=== PATIENT | female | born 1990 | race African-American/Black ===

== ENCOUNTER → 2016-11-21 | Outpatient (CLI) | payer OTHER ==
[2016-09-02 19:43] VITALS: BP 142/76
[~2016-11-21] MED LIST: ACET-704 PO; AMOX500C PO; AMOX875T PO; BENZ100C PO; HYDR-2762 PO; HYDR-971 PO; IBUP800T2 PO; LIPOZENE PO; NAPR375T3 PO; PRED20TA PO
--- NOTE | 2016-11-21 10:04 | RAD ---
Abdominal ultrasound, 11/21/2016: History: Abdominal pain, possible umbilical hernia The gallbladder is within normal limits in size. There is no sonographic evidence of cholelithiasis. The gallbladder wall is not thickened. No bile duct dilatation is seen. The visualized portions of the liver, pancreas, spleen and both kidneys are unremarkable. The aorta and inferior vena cava are unremarkable. No free fluid is evident in the abdomen. Limited scans of the anterior abdominal wall reveal no abnormality. IMPRESSION: No significant abnormality is detected.
== END | disposition home or self-care (01) ==
LOC: US 06:40
PROVIDERS: ATTEND Specialist
DX: R10.9 Unspecified abdominal pain (principal)
CPT/HCPCS: 76700

== ENCOUNTER → 2016-12-08 | Outpatient (CLI) | payer OTHER ==
[2016-09-02 19:43] VITALS: BP 142/76
[~2016-12-08] MED LIST changes: +IOHEXOL 240 MG/ML 50ML VIAL. PO ONE; +IOHEXOL 300 MG/ML 75 ML VIAL IV ONE
--- NOTE | 2016-12-08 10:56 | RAD ---
Indication ventral hernia. Axial images of the abdomen and pelvis were obtained. Both IV and oral contrast were administered. Note is made of a previous examination 03/22/2016. There is some volume loss in the right middle lobe. This may reflect atelectasis. Pneumonia is not entirely excluded. The left lung base is clear. The liver and spleen appear unremarkable. The gallbladder appears grossly normal. No pancreatic abnormality is seen. The adrenal glands and kidneys appear normal. There is diastases of the rectus muscle. The linea alba appears intact and no elan abdominal hernia is seen. There is some soft tissue irregularity in the area of the umbilicus. Inflammation or a wound in this area is not excluded. Correlation with targeted physical exam advised. An acute finding in the abdomen is not seen. In the pelvis the uterus is slightly enlarged. Clinical correlation again advised. A focal mass or inflammatory process is not seen. IMPRESSION: Diastases of the rectus muscle. The linea alba appears intact and no elan hernia is seen. Possible inflammation in the area of the umbilicus. Volume loss, compatible with atelectasis or focus of pneumonia, in the right middle lobe PQRS Compliance Statement: One or more of the following individualized dose reduction techniques were utilized for this examination: 1. Automated exposure control 2. Adjustment of the mA and/or kV according to patient size 3. Use of iterative reconstruction technique
== END | disposition home or self-care (01) ==
LOC: CT 08:56
PROVIDERS: ATTEND Specialist
DX: K43.9 Ventral hernia without obstruction or gangrene (principal); J18.9 Pneumonia, unspecified organism
CPT/HCPCS: 74177; Q9966; Q9967

== ENCOUNTER 2016-12-15 07:30 | Day surgery (SDC) | payer OTHER ==
[~2016-12-15] VITALS: Ht 165.1 cm; Wt 71.7 kg
[~2016-12-15 07:30] MED LIST changes: +CEFAZOLIN 1GM IVPB FOR OMNI 50 ML IV ONE; +FENTANYL PF 100 MCG/2 ML VIAL. IV PRN; +HYDROMORPHONE 2 MG/ML VIAL. IV PRN; -IOHEXOL 240 MG/ML 50ML VIAL. PO ONE; -IOHEXOL 300 MG/ML 75 ML VIAL IV ONE; +IV RINGERS,LACTATED 1000ML 1,000 ML IV SCH; +LIDOCAINE 1% 1 ML SYRINGE. ID PRN; +MORPHINE SULFATE 2 MG/ML DISP.SYRIN. IV PRN; +ONDANSETRON PF 4 MG/2 ML VIAL. IV PRN; +PROCHLORPERAZINE 10 MG/2 ML VIAL. IV PRN
[2016-12-15] MEDS ORDERED: LIDOCAINE 2% 100 MG/5 ML DISP.SYRIN. ONE (08:09)
[2016-12-15] MEDS ORDERED: DEXAMETHASONE SOD PHOS 20 MG/5 ML VIAL. ONE (08:09)
[2016-12-15] MEDS ORDERED: PROPOFOL 20 ML IV ONE (08:09)
[2016-12-15] MEDS ORDERED: ROCURONIUM 50 MG/5 ML VIAL. ONE (08:09)
[2016-12-15] MEDS ORDERED: ONDANSETRON PF 4 MG/2 ML VIAL. ONE (08:09)
[2016-12-15] MEDS ORDERED: FENTANYL PF 100 MCG/2 ML VIAL. ONE (08:11)
[2016-12-15 08:21] LABS: NEG OBC UR NEG; POS OBC UR POS
[2016-12-15 08:25] LABS: BASO % 1 % (0-3); EOS % 1 % (0-3); HEMATOCRIT 33.6 % (36.0-47.0); HEMOGLOBIN 10.8 g/dL (12.0-15.5); LYMPH # 2.3 x10^3/uL (1.0-4.8); LYMPH % 52 % (24-48); MEAN CORPUSCULAR HEMOGLOBIN 31 pg (25-35); MEAN CORPUSCULAR HGB CONC 32 g/dL (31-37); MEAN CORPUSCULAR VOLUME 98 fL (79-100); MONO % 8 % (0-9); NEUT % 39 % (31-73); PLATELET COUNT 265 x10^3/uL (140-400); RED BLOOD COUNT 3.45 x10^6/uL (3.50-5.40); RED CELL DISTRIBUTION WIDTH 12.5 % (11.5-14.5); WHITE BLOOD COUNT 4.5 x10^3/uL (4.0-11.0)
[2016-12-15 08:36] LABS: INR 1.1 (0.8-1.1); PROTHROMBIN TIME PATIENT 13.2 SEC (11.7-14.0)
[2016-12-15 08:42] LABS: CALCIUM 9.1 mg/dL (8.5-10.1); CREATININE 0.5 mg/dL (0.6-1.0); GFR 179.1; POTASSIUM 3.7 mmol/L (3.5-5.1)
[2016-12-15 08:48] LABS: ALBUMIN 3.4 g/dL (3.4-5.0); ALBUMIN/GLOBULIN RATIO 0.9 (1.0-1.7); TOTAL PROTEIN 7.2 g/dL (6.4-8.2)
[2016-12-15] MEDS ORDERED: MIDAZOLAM HCL 2 MG/2 ML VIAL. ONE (09:00)
--- NOTE | 2016-12-15 09:02 | PDOC ---
SURGICAL PROGRESS NOTE Subjective Surgeon.......................................Feliciano Pre-op diagnosis...........................Ventral hernia Post-op diagnosis.........................Ventral hernia Anesthesia....................................General Procedure.....................................ventral hernia repair drains........................................... fluids............................................see anesthesia blood loss..................................... condition.......................................satisfactory Vital Signs Vital Signs Date Time Temp Pulse Resp B/P Pulse Ox O2 Delivery O2 Flow Rate FiO2 12/15/16 08:15 98.0 68 20 115/61 100 Room Air 98.0 Labs Laboratory Tests Test 12/15/16 08:00 12/15/16 08:15 Urine Test Negative (NEG) White Blood Count 4.5x10^3/uL (4.0-11.0) Red Blood Count 3.45x10^6/uL (3.50-5.40) Hemoglobin 10.8g/dL (12.0-15.5) Hematocrit 33.6% (36.0-47.0) Mean Corpuscular Volume 98fL (79-100) Mean Corpuscular Hemoglobin 31pg (25-35) Mean Corpuscular Hemoglobin Concent 32g/dL (31-37) Red Cell Distribution Width 12.5% (11.5-14.5) Platelet Count 265x10^3/uL (140-400) Neutrophils (%) (Auto) 39% (31-73) Lymphocytes (%) (Auto) 52% (24-48) Monocytes (%) (Auto) 8% (0-9) Eosinophils (%) (Auto) 1% (0-3) Basophils (%) (Auto) 1% (0-3) Neutrophils # (Auto) 1.7x10^3uL (1.8-7.7) Lymphocytes # (Auto) 2.3x10^3/uL (1.0-4.8) Monocytes # (Auto) 0.3x10^3/uL (0.0-1.1) Eosinophils # (Auto) 0.1x10^3/uL (0.0-0.7) Basophils # (Auto) 0.0x10^3/uL (0.0-0.2) Prothrombin Time 13.2SEC (11.7-14.0) Prothromb Time International Ratio 1.1 (0.8-1.1) Sodium Level 140mmol/L (136-145) Potassium Level 3.7mmol/L (3.5-5.1) Chloride Level 104mmol/L (98-107) Carbon Dioxide Level 29mmol/L (21-32) Anion Gap 7 (6-14) Blood Urea Nitrogen 10mg/dL (7-20) Creatinine 0.5mg/dL (0.6-1.0) Estimated GFR (Cockcroft-Gault) 179.1 BUN/Creatinine Ratio 20 (6-20) Glucose Level 95mg/dL (70-99) Calcium Level 9.1mg/dL (8.5-10.1) Total Bilirubin 1.0mg/dL (0.2-1.0) Aspartate Amino Transf (AST/SGOT) 14U/L (15-37) Alanine Aminotransferase (ALT/SGPT) 16U/L (14-59) Alkaline Phosphatase 71U/L (46-116) Total Protein 7.2g/dL (6.4-8.2) Albumin 3.4g/dL (3.4-5.0) Albumin/Globulin Ratio 0.9 (1.0-1.7) Laboratory Tests Test 12/15/16 08:00 12/15/16 08:15 Urine Test Negative (NEG) White Blood Count 4.5x10^3/uL (4.0-11.0) Red Blood Count 3.45x10^6/uL (3.50-5.40) Hemoglobin 10.8g/dL (12.0-15.5) Hematocrit 33.6% (36.0-47.0) Mean Corpuscular Volume 98fL (79-100) Mean Corpuscular Hemoglobin 31pg (25-35) Mean Corpuscular Hemoglobin Concent 32g/dL (31-37) Red Cell Distribution Width 12.5% (11.5-14.5) Platelet Count 265x10^3/uL (140-400) Neutrophils (%) (Auto) 39% (31-73) Lymphocytes (%) (Auto) 52% (24-48) Monocytes (%) (Auto) 8% (0-9) Eosinophils (%) (Auto) 1% (0-3) Basophils (%) (Auto) 1% (0-3) Neutrophils # (Auto) 1.7x10^3uL (1.8-7.7) Lymphocytes # (Auto) 2.3x10^3/uL (1.0-4.8) Monocytes # (Auto) 0.3x10^3/uL (0.0-1.1) Eosinophils # (Auto) 0.1x10^3/uL (0.0-0.7) Basophils # (Auto) 0.0x10^3/uL (0.0-0.2) Prothrombin Time 13.2SEC (11.7-14.0) Prothromb Time International Ratio 1.1 (0.8-1.1) Sodium Level 140mmol/L (136-145) Potassium Level 3.7mmol/L (3.5-5.1) Chloride Level 104mmol/L (98-107) Carbon Dioxide Level 29mmol/L (21-32) Anion Gap 7 (6-14) Blood Urea Nitrogen 10mg/dL (7-20) Creatinine 0.5mg/dL (0.6-1.0) Estimated GFR (Cockcroft-Gault) 179.1 BUN/Creatinine Ratio 20 (6-20) Glucose Level 95mg/dL (70-99) Calcium Level 9.1mg/dL (8.5-10.1) Total Bilirubin 1.0mg/dL (0.2-1.0) Aspartate Amino Transf (AST/SGOT) 14U/L (15-37) Alanine Aminotransferase (ALT/SGPT) 16U/L (14-59) Alkaline Phosphatase 71U/L (46-116) Total Protein 7.2g/dL (6.4-8.2) Albumin 3.4g/dL (3.4-5.0) Albumin/Globulin Ratio 0.9 (1.0-1.7) ASAD FELICIANO MD Dec 15, 2016 09:01
[2016-12-15] MEDS ORDERED: BUPIVAC MPF-EPI 0.5%-1:200000 30 ML VIAL. ONE (09:07)
[2016-12-15] MEDS ORDERED: KETOROLAC 30 MG/ML SYRINGE FOR OR. INJ ONE (10:26)
[2016-12-15] MEDS ORDERED: GLYCOPYRROLATE 1 MG/5 ML VIAL. ONE (10:27)
[2016-12-15] MEDS ORDERED: NEOSTIGMINE METHYLSULFATE 5 MG/5 ML SYRINGE. ONE (10:27)
[2016-12-15] MEDS ORDERED: SEVOFLURANE 61 TO 120 MINUTES. IH ONE (10:51)
[2016-12-15] MEDS ORDERED: CEFAZOLIN 1GM IVPB FOR OMNI 50 ML IV ONE (11:19)
[2016-12-15] MEDS ORDERED: HYDR-2679 PO (11:53)
[2016-12-15] MEDS: FENTANYL PF 100 MCG/2 ML VIAL. IV PRN ×4 (12:15→13:15)
[2016-12-15] MEDS ORDERED: HYDROCODONE/APAP 7.5/325MG TABLET. PO ONE (13:00)
[2016-12-15 14:03] VITALS: BP 115/61
--- NOTE | 2016-12-16 02:43 | OP ---
DATE OF SURGERY: SURGEON: Otoniel Feliciano MD PREOPERATIVE DIAGNOSIS: Recurrent ventral hernia. POSTOPERATIVE DIAGNOSIS: Recurrent ventral hernia. ANESTHESIA: General. PROCEDURE: Repair of recurrent ventral hernia with mesh. TECHNIQUE: Under general anesthesia, the patient was properly prepped and draped in a routine fashion. The patient had had an upper abdominal incisional hernia repair. She got after that and now has this hernia. The hernia now is just above the umbilicus protruding and causing some difficulties. As such, after the area had been properly prepped and draped, the technique was begun. A supraumbilical incision was made, carried down through the skin, a little larger than normal, because this was recurrent hernia, you could the defect. As such, we made the incision and carried it down through the skin with a 15 blade. This was all done after she was properly prepped and draped. We then identified the sac and slowly went around it with Metzenbaum scissors, some finger dissection and slowly went around it. We took it off the anterior abdominal wall scar and the umbilicus with a knife and Metzenbaum. We then opened the sac to make certain that there were no contents in it. We did this safely making sure not to injure any intraabdominal contents. We then identified the fascial edges. Luckily, there were no adhesions to the fascial edges. We pulled these up with Chuy clamps and then cut away the redundant sac and used 0 Prolene interrupted sutures to close the wound. The wound, however, was closed only after we put a circular patch of the Ventralex with the Seprafilm on the underside of it, put this in, we had sutured it to the anterior abdominal wall using 0 Prolene sutures and then had it laid flat against the anterior abdominal wall and then closed the defect using interrupted #1 Prolene sutures. These were pulled up and 0.5% Marcaine with epinephrine was injected into the fascia. We then cut the sutures. The tag that had been on the disk had been cut previous to the closure of the defect. We then used 4-0 Vicryl interrupted sutures to bury the knots, so that they would not protrude and they would be laid flat. . We then irrigated the wound with saline and approximated some of the subcutaneous with 4-0 Vicryl and then closed the skin using a subcuticular 5-0 Vicryl. This having been done, we then applied a sterile dressing and the procedure was terminated. The blood loss was probably 10 mL. FLUIDS GIVEN: Can be obtained from the anesthesia sheet. DRAINS: No drains were used. CONDITION OF THE PATIENT: Satisfactory as she is returned to the recovery room. OTONIEL FELICIANO MD DR: TERRA/tiffanie JOB#: [id number] / [id number]
== END 2016-12-15 14:02 | disposition home or self-care (01) ==
LOC: SURG 07:30
PROVIDERS: ATTEND Specialist
DX: K43.2 Incisional hernia without obstruction or gangrene (principal); K21.9 Gastro-esophageal reflux disease without esophagitis; Z98.890 Other specified postprocedural states
CPT/HCPCS: 36415; 49565; 49568; 80053; 81025; 85027; 85610; A4215; J0690; J1100; J1885; J2250; J2405; J2704; J2710; J3010; J3490; J7120

== ENCOUNTER 2016-12-27 16:20 | Emergency (ER) | payer OTHER ==
[~2016-12-27] VITALS: Ht 162.6 cm; Wt 83.9 kg
[~2016-12-27 16:20] MED LIST changes: -CEFAZOLIN 1GM IVPB FOR OMNI 50 ML IV ONE; -FENTANYL PF 100 MCG/2 ML VIAL. IV PRN; +HYDR-2679 PO; -HYDROMORPHONE 2 MG/ML VIAL. IV PRN; -IV RINGERS,LACTATED 1000ML 1,000 ML IV SCH; -LIDOCAINE 1% 1 ML SYRINGE. ID PRN; -MORPHINE SULFATE 2 MG/ML DISP.SYRIN. IV PRN; -ONDANSETRON PF 4 MG/2 ML VIAL. IV PRN; -PROCHLORPERAZINE 10 MG/2 ML VIAL. IV PRN
--- NOTE | 2016-12-27 17:27 | ED.ADGEN ---
Past Medical History Past Medical History: No Pertinent History, Other Additional Past Medical Histor: hernia Past Surgical History: Tonsillectomy, Other Additional Past Surgical Histo: hernia; neck as Alcohol Use: None Drug Use: None Adult General Chief Complaint Chief Complaint: ABDOMINAL PAIN HPI HPI Patient is a 26 year old female presents emergency department 12 days after having a ventral hernia repair. Patient states he continues to have pain there. She does not have follow-up with the surgeon until next week. She tells me that she has been using her hydrocodone every 4 hours since her surgery. She has not changed her dressing. Her pain is right at the site of her repair. She reports some nausea but denies any fevers, chills, vomiting, diarrhea. Patient also denies any dysuria, vaginal bleeding, or vaginal discharge. Review of Systems Review of Systems Constitutional: Denies fever or chills. [] Eyes: Denies change in visual acuity. [] HENT: Denies nasal congestion or sore throat. [] Respiratory: Denies cough or shortness of breath. [] Cardiovascular: Denies chest pain or edema. [] GI: Denies abdominal pain, nausea, vomiting, bloody stools or diarrhea. [] : Denies dysuria. [] Musculoskeletal: Denies back pain or joint pain. [] Integument: Denies rash. [] Neurologic: Denies headache, focal weakness or sensory changes. [] Endocrine: Denies polyuria or polydipsia. [] Lymphatic: Denies swollen glands. [] Psychiatric: Denies depression or anxiety. [] Current Medications Current Medications Current Medications Medications (Trade) Dose Ordered Sig/[facility] Start Time Stop Time Status Last Admin Dose Admin Fentanyl Citrate (Fentanyl 2ml Vial) 75 mcg 1X ONCE 12/27/16 18:00 12/27/16 18:01 DC 12/27/16 17:49 75 MCG Allergies Allergies Allergies Coded Allergies Type Severity Reaction Last Updated Verified No Known Drug Allergies 12/15/16 No Physical Exam Physical Exam Constitutional: Well developed, well nourished, no acute distress, non-toxic appearance. [] HENT: Normocephalic, atraumatic, bilateral external ears normal, oropharynx moist, no oral exudates, nose normal. [] Eyes: PERRLA, EOMI, conjunctiva normal, no discharge. [] Neck: Normal range of motion, no tenderness, supple, no stridor. [] Cardiovascular:Heart rate regular rhythm, no murmur [] Lungs & Thorax: Bilateral breath sounds clear to auscultation [] Abdomen: Bowel sounds normal, soft, tender to palpation just superior to her umbilicus that the side of her ventral hernia repair. There is a well healing 1 cm incision without any signs of infection., no masses, no pulsatile masses. [] Skin: Warm, dry, no erythema, no rash. [] Extremities: No tenderness, no cyanosis, no clubbing, ROM intact, no edema. [] Neurologic: Alert and oriented X 3, normal motor function, normal sensory function, no focal deficits noted. [] Psychologic: Affect normal, judgement normal, mood normal. [] Current Patient Data Vital Signs Vital Signs Date Time Temp Pulse Resp B/P Pulse Ox O2 Delivery O2 Flow Rate FiO2 12/27/16 18:43 70 16 118/76 99 Room Air 12/27/16 16:40 98.8 98.8 Lab Values Laboratory Tests Test 12/27/16 17:35 White Blood Count 5.7x10^3/uL (4.0-11.0) Red Blood Count 3.73x10^6/uL (3.50-5.40) Hemoglobin 11.8g/dL (12.0-15.5) L Hematocrit 36.3% (36.0-47.0) Mean Corpuscular Volume 97fL (79-100) Mean Corpuscular Hemoglobin 32pg (25-35) Mean Corpuscular Hemoglobin Concent 33g/dL (31-37) Red Cell Distribution Width 12.6% (11.5-14.5) Platelet Count 307x10^3/uL (140-400) Neutrophils (%) (Auto) 48% (31-73) Lymphocytes (%) (Auto) 41% (24-48) Monocytes (%) (Auto) 7% (0-9) Eosinophils (%) (Auto) 4% (0-3) H Basophils (%) (Auto) 1% (0-3) Neutrophils # (Auto) 2.7x10^3uL (1.8-7.7) Lymphocytes # (Auto) 2.3x10^3/uL (1.0-4.8) Monocytes # (Auto) 0.4x10^3/uL (0.0-1.1) Eosinophils # (Auto) 0.2x10^3/uL (0.0-0.7) Basophils # (Auto) 0.1x10^3/uL (0.0-0.2) Sodium Level 138mmol/L (136-145) Potassium Level 4.0mmol/L (3.5-5.1) Chloride Level 103mmol/L (98-107) Carbon Dioxide Level 29mmol/L (21-32) Anion Gap 6 (6-14) Blood Urea Nitrogen 9mg/dL (7-20) Creatinine 0.6mg/dL (0.6-1.0) Estimated GFR (Cockcroft-Gault) 145.1 Glucose Level 94mg/dL (70-99) Calcium Level 9.5mg/dL (8.5-10.1) Laboratory Tests 12/27/16 17:35 Laboratory Tests 12/27/16 17:35 EKG EKG [] Radiology/Procedures Radiology/Procedures [] Course & Med Decision Making Course & Med Decision Making Pertinent Labs and Imaging studies reviewed. (See chart for details) No signs of infection. Patient's pain is under control now. She is being discharged with prescription for [place]. She is to call her surgeon's office on Thursday morning if she is continuing to have pain. [] Dragon Disclaimer Dragon Disclaimer This electronic medical record was generated, in whole or in part, using a voice recognition dictation system. MUSHTAQ DRIVER MD Dec 27, 2016 17:27
[2016-12-27 17:54] LABS: BASO # 0.1 x10^3/uL (0.0-0.2); BASO % 1 % (0-3); EOS % 4 % (0-3); HEMATOCRIT 36.3 % (36.0-47.0); HEMOGLOBIN 11.8 g/dL (12.0-15.5); LYMPH # 2.3 x10^3/uL (1.0-4.8); LYMPH % 41 % (24-48); MEAN CORPUSCULAR HEMOGLOBIN 32 pg (25-35); MEAN CORPUSCULAR HGB CONC 33 g/dL (31-37); MEAN CORPUSCULAR VOLUME 97 fL (79-100); MONO % 7 % (0-9); NEUT % 48 % (31-73); PLATELET COUNT 307 x10^3/uL (140-400); RED BLOOD COUNT 3.73 x10^6/uL (3.50-5.40); RED CELL DISTRIBUTION WIDTH 12.6 % (11.5-14.5); WHITE BLOOD COUNT 5.7 x10^3/uL (4.0-11.0)
[2016-12-27] MEDS ORDERED: FENTANYL PF 100 MCG/2 ML VIAL. IV ONE (18:00)
[2016-12-27 18:03] LABS: CALCIUM 9.5 mg/dL (8.5-10.1); CREATININE 0.6 mg/dL (0.6-1.0); GFR 145.1
[2016-12-27 18:43] VITALS: BP 118/76
[2016-12-27] MEDS ORDERED: HYDR-971 PO (19:08)
== END 2016-12-27 19:38 | disposition home or self-care (01) ==
LOC: ER 16:20
DX: R10.10 Upper abdominal pain, unspecified (principal); R11.0 Nausea; Z98.890 Other specified postprocedural states
CPT/HCPCS: 36415; 80048; 85027; 96374; 99284; J3010

== ENCOUNTER 2017-01-23 17:16 | Emergency (ER) | payer OTHER ==
[~2017-01-23] VITALS: Ht 162.6 cm; Wt 77.1 kg
[2017-01-23 17:47] VITALS: BP 148/82
--- NOTE | 2017-01-23 17:54 | PHYS DOC ---
Past Medical History Past Medical History: No Pertinent History, Other Additional Past Medical Histor: hernia Past Surgical History: Tonsillectomy, Tubal ligation, Other Additional Past Surgical Histo: hernia; neck as infant Alcohol Use: None Drug Use: None Adult General Chief Complaint Chief Complaint: ABDOMINAL PAIN HPI HPI Patient is a 26 year old female who presents emergency room with complaint of "really bad menstrual cramps" that began today. This is the first the patient's menstrual cycle. She has regular cycles. She denies any history of genitourinary disease. She denies any preceding dysuria, hematuria, flank pain, fevers or chills. Patient has had a tubal ligation within the past 5 years. She reports she's had no complications since that period of time. Review of Systems Review of Systems Constitutional: Denies fever or chills [] Eyes: Denies change in visual acuity, redness, or eye pain [] HENT: Denies nasal congestion or sore throat [] Respiratory: Denies cough or shortness of breath [] Cardiovascular: No additional information not addressed in HPI [] GI: Denies abdominal pain, nausea, vomiting, bloody stools or diarrhea [] : Denies dysuria or hematuria [] Musculoskeletal: Denies back pain or joint pain [] Integument: Denies rash or skin lesions [] Neurologic: Denies headache, focal weakness or sensory changes [] Endocrine: Denies polyuria or polydipsia [] Current Medications Current Medications Current Medications Medications (Trade) Dose Ordered Sig/[facility] Start Time Stop Time Status Last Admin Dose Admin Ketorolac Tromethamine (Toradol Im) 60 mg 1X ONCE 01/23/17 19:00 01/23/17 19:01 DC 01/23/17 18:54 60 MG Allergies Allergies Allergies Coded Allergies Type Severity Reaction Last Updated Verified No Known Drug Allergies 12/15/16 No Physical Exam Physical Exam Constitutional: Well developed, well nourished, no acute distress, non-toxic appearance. Patient is normal physiologic vital signs. HENT: Normocephalic, atraumatic, bilateral external ears normal, oropharynx moist, no oral exudates, nose normal. [] Eyes: PERRLA, EOMI, conjunctiva normal, no discharge. [] Neck: Normal range of motion, no tenderness, supple, no stridor. [] Cardiovascular:Heart rate regular rhythm, no murmur [] Lungs & Thorax: Bilateral breath sounds clear to auscultation [] Abdomen: Bowel sounds normal, soft, suprapubic, no masses, no pulsatile masses. There is no rebound or guarding. Skin: Warm, dry, no erythema, no rash. [] Back: No tenderness, no CVA tenderness. [] Extremities: No tenderness, no cyanosis, no clubbing, ROM intact, no edema. [] Neurologic: Alert and oriented X 3, normal motor function, normal sensory function, no focal deficits noted. [] Psychologic: Affect normal, judgement normal, mood normal. [] Current Patient Data Vital Signs Vital Signs Date Time Temp Pulse Resp B/P (MAP) Pulse Ox O2 Delivery O2 Flow Rate FiO2 01/23/17 17:47 98.4 86 18 100 Room Air 98.4 Lab Values Laboratory Tests Test 01/23/17 18:19 Urine Collection Type Unknown Urine Color Red Urine Clarity Bloody Urine pH 5.5 Urine Specific [place] >=1.030 Urine Protein 30 mg/dL (NEG-TRACE) Urine Glucose (UA) Negative mg/dL (NEG) Urine Ketones (Stick) Negative mg/dL (NEG) Urine Blood Large (NEG) Urine Nitrite Negative (NEG) Urine Bilirubin Negative (NEG) Urine Urobilinogen Dipstick 1.0 mg/dL (0.2 mg/dL) Urine Leukocyte Esterase Small (NEG) Urine RBC Tntc /HPF (0-2) Urine WBC >40 /HPF (0-4) Urine Squamous Epithelial Cells Mod /LPF Urine Bacteria 0 /HPF (0-FEW) Urine Mucus Mod /LPF Urine Test Negative (NEG) EKG EKG [] Radiology/Procedures Radiology/Procedures [] Course & Med Decision Making Course & Med Decision Making Upon review of patient's UA, when back in to speak to her. She states that she does not have any history of bladder problems such as interstitial cystitis. She states that she does not typically have any kind of recurring bladder problems. I informed him of her test results are today. We discussed follow-up with a primary care doctor as well as a pearl maker and possibly a urologist if needed. Dragon Disclaimer Dragon Disclaimer This electronic medical record was generated, in whole or in part, using a voice recognition dictation system. Departure Departure Impression: Primary Impression: Severe menstrual cramps Additional Impression: Pyuria, sterile Disposition: 01 HOME, SELF-CARE Condition: GOOD Referrals: NO PCP (PCP) Patient Instructions: Dysuria-Brief, Pelvic Pain, Female, [id number] Additional Instructions: 1. Take the medication as prescribed. 2. Review the discharge instructions provided for self-care and reasons to return the emergency department. 3. Use the pamphlet provided for assistance in finding a primary care doctor and a pearl maker that you can follow-up with. Scripts Hydrocodone/Apap 5-325 (NORCO 5-325 TABLET) 1 Each Tablet 1 TAB PO PRN Q6HRS Y for BREAKTHROUGH PAIN, #10 TAB 0 Refills Prov: MORIS CARROLL 01/23/17 Ketorolac Tromethamine (KETOROLAC TROMETHAMINE) 10 Mg Tablet 1 TAB PO TID for severe menstrual cramping, #15 TAB Prov: MORIS CARROLL 01/23/17 Nitrofurantoin Macrocrystal (NITROFURANTOIN) 100 Mg Capsule 1 CAP PO BID, #14 CAP Prov: MORIS CARROLL 01/23/17 Problem Qualifiers MORIS CARROLL January 23, 2017 17:53
[2017-01-23 18:31] LABS: BILIRUBIN,URINE NEGATIVE (NEG); GLUCOSE,URINE NEGATIVE (NEG); NITRITE,URINE NEGATIVE (NEG); PH,URINE 5.5
[2017-01-23 18:34] LABS: NEG OBC UR NEG; POS OBC UR POS
[2017-01-23 18:55] LABS: BACTERIA,URINE 0 /HPF (0-FEW); PROTEIN,URINE 30 mg/dL (NEG-TRACE); RBC,URINE TNTC /HPF (0-2); WBC,URINE >40 /HPF (0-4)
[2017-01-23 18:56] LABS: SQUAMOUS EPITHELIAL CELL,UR MOD /LPF
[2017-01-23] MEDS ORDERED: KETOROLAC TROMETHAMINE 60 MG/2 ML INJ. IM ONE (19:00)
[2017-01-23] MEDS ORDERED: KETO10TA PO (19:10)
[2017-01-23] MEDS ORDERED: NITR100C PO (19:10)
[2017-01-23] MEDS ORDERED: HYDR-971 PO (19:10)
== END 2017-01-23 19:20 | disposition home or self-care (01) ==
LOC: ER 17:16
DX: N94.6 Dysmenorrhea, unspecified (principal); N39.0 Urinary tract infection, site not specified; Z98.51 Tubal ligation status
CPT/HCPCS: 81001; 81025; 87086; 96372; 99284; J1885

== ENCOUNTER 2017-03-15 23:45 | Emergency (ER) | payer OTHER ==
[~2017-03-15] VITALS: Ht 162.6 cm; Wt 76.2 kg
[~2017-03-15 23:45] MED LIST changes: +IBUP800T19 PO; -IBUP800T2 PO; +KETO10TA PO; +NITR100C PO
[2017-03-16 00:06] LABS: BILIRUBIN,URINE NEGATIVE (NEG); GLUCOSE,URINE NEGATIVE (NEG); NITRITE,URINE NEGATIVE (NEG); PH,URINE 6.5; PROTEIN,URINE 100 mg/dL (NEG-TRACE)
[2017-03-16 00:18] LABS: BACTERIA,URINE MODERATE /HPF (0-FEW); RBC,URINE TNTC /HPF (0-2); SQUAMOUS EPITHELIAL CELL,UR MANY /LPF
[2017-03-16 00:30] VITALS: BP 128/78
[2017-03-16] MEDS ORDERED: LEVO500T8 PO (00:36)
--- NOTE | 2017-03-16 00:36 | PHYS DOC ---
Past Medical History Past Medical History: No Pertinent History Past Surgical History: Tonsillectomy, Tubal ligation, Other Additional Past Surgical Histo: hernia; neck as infant Alcohol Use: None Drug Use: None Adult General Chief Complaint Chief Complaint: ABDOMINAL PAIN HPI HPI Patient is a 26 year old female who presents with with lower abdominal pain and lateral low back pain that is crampy in nature. States she has not smoked in urine and vaginal discharge. She is currently on her menstrual cycle, starting today. She has some concerns for STDs and would like to be treated just in case. She denies fever or chills, nausea or vomiting, diarrhea, constipation. Review of Systems Review of Systems Constitutional: Denies fever or chills [] Eyes: Denies change in visual acuity, redness, or eye pain [] HENT: Denies nasal congestion or sore throat [] Respiratory: Denies cough or shortness of breath [] Cardiovascular: No additional information not addressed in HPI [] GI: Denies nausea, vomiting, bloody stools or diarrhea [] : Denies dysuria or hematuria [] Musculoskeletal: Denies joint pain [] Integument: Denies rash or skin lesions [] Neurologic: Denies headache, focal weakness or sensory changes [] Endocrine: Denies polyuria or polydipsia [] Current Medications Current Medications Current Medications Medications (Trade) Dose Ordered Sig/[facility] Start Time Stop Time Status Last Admin Dose Admin Azithromycin (Zithromax) 1,000 mg 1X ONCE 03/16/17 01:00 03/16/17 01:01 DC 03/16/17 00:50 1,000 MG Ceftriaxone Sodium (Rocephin Im) 250 mg 1X ONCE 03/16/17 01:00 03/16/17 01:01 DC 03/16/17 00:50 250 MG Allergies Allergies Allergies Coded Allergies Type Severity Reaction Last Updated Verified No Known Drug Allergies 12/15/16 No Physical Exam Physical Exam Constitutional: Well developed, well nourished, no acute distress, non-toxic appearance. [] HENT: Normocephalic, atraumatic, bilateral external ears normal, oropharynx moist, nose normal. [] Eyes: PERRLA, EOMI. [] Neck: Normal range of motion, supple. [] Cardiovascular:Heart rate regular rhythm [] Lungs & Thorax: Bilateral breath sounds clear to auscultation [] Abdomen: Bowel sounds normal, soft, no tenderness. [] Skin: Warm, dry, no erythema, no rash. [] Back: No tenderness, no CVA tenderness. [] Extremities: No tenderness, ROM intact, no edema. [] Neurologic: Alert and oriented X 3, normal motor function, normal sensory function, no focal deficits noted. [] Psychologic: Affect normal, judgement normal, mood normal. [] Current Patient Data Vital Signs Vital Signs Date Time Temp Pulse Resp B/P (MAP) Pulse Ox O2 Delivery O2 Flow Rate FiO2 03/16/17 00:30 70 128/78 (95) 100 Room Air 03/15/17 23:50 98.4 16 98.4 Lab Values Laboratory Tests Test 03/15/17 23:06 03/15/17 23:39 POC Urine HCG, Qualitative Hcg negative (Negative) Urine Collection Type Unknown Urine Color [place] Urine Clarity Turbid Urine pH 6.5 Urine Specific [place] >=1.030 Urine Protein 100 mg/dL (NEG-TRACE) Urine Glucose (UA) Negative mg/dL (NEG) Urine Ketones (Stick) Trace mg/dL (NEG) Urine Blood Large (NEG) Urine Nitrite Negative (NEG) Urine Bilirubin Negative (NEG) Urine Urobilinogen Dipstick 1.0 mg/dL (0.2 mg/dL) Urine Leukocyte Esterase Small (NEG) Urine RBC Tntc /HPF (0-2) Urine WBC 5-10 /HPF (0-4) Urine Squamous Epithelial Cells Many /LPF Urine Bacteria Moderate /HPF (0-FEW) Urine Mucus Mod /LPF Microbiology 03/16/17 Wet Prep - Final, Complete Course & Med Decision Making Course & Med Decision Making Pertinent Labs and Imaging studies reviewed. (See chart for details) She appears well on exam. Urine with signs of infection. She was treated for STDs empirically. States sex practices discussed. Return precautions given. She understands and agrees with plan. Dragon Disclaimer Dragon Disclaimer This electronic medical record was generated, in whole or in part, using a voice recognition dictation system. Departure Departure Impression: Primary Impression: Acute cystitis with hematuria Additional Impression: Concern about STD in female without diagnosis Disposition: 01 HOME, SELF-CARE Condition: STABLE Referrals: NO PCP (PCP) Patient Instructions: Urinary Tract Infection, [id number] Additional Instructions: Your results will take at least 2 days to run. You will only received a phone call if your results are positive. Take levofloxacin for urinary tract infection. Take Tylenol or ibuprofen as needed for pain. Follow-up with your primary care doctor within one week. Return for any concerns. Scripts Levofloxacin (LEVOFLOXACIN) 500 Mg Tablet 1 TAB PO DAILY, #3 TAB Prov: Judy HASTINGS MD 03/16/17 Problem Qualifiers Judy HASTINGS MD Mar 16, 2017 00:36
[2017-03-16] MEDS ORDERED: cefTRIAXone IM 250 MG VIAL IM ONE (01:00)
[2017-03-16] MEDS ORDERED: AZITHROMYCIN 250 MG TABLET. PO ONE (01:00)
== END 2017-03-16 01:02 | disposition home or self-care (01) ==
LOC: ER 23:45
DX: Z11.3 Encounter for screening for infections with a predominantly sexual mode of transmission (principal); N30.91 Cystitis, unspecified with hematuria; Z98.51 Tubal ligation status; N30.01 Acute cystitis with hematuria
CPT/HCPCS: 81001; 81025; 87086; 87491; 87591; 96372; 99284; J0696; Q0111; Q0144

== ENCOUNTER 2017-05-20 14:35 | Emergency (ER) | payer OTHER ==
[~2017-05-20 14:35] MED LIST changes: +LEVO500T8 PO
[2017-05-20 15:08] VITALS: BP 130/78
[2017-05-20] MEDS ORDERED: IBUP-1060 PO (15:16)
[2017-05-20] MEDS ORDERED: PSEU120T58 PO (15:16)
--- NOTE | 2017-05-20 15:16 | PHYS DOC ---
Past Medical History Past Medical History: No Pertinent History Past Surgical History: Tonsillectomy, Tubal ligation, Other Additional Past Surgical Histo: hernia; neck as infant Alcohol Use: None Drug Use: None Adult General Chief Complaint Chief Complaint: Congestion HPI HPI Patient is a 26 year old female presents to the emergency department with complaints of upper respiratory congestion and general malaise for one day. She is not using any [id number] medications for relief for management of symptoms. She denies fever, headache, nausea, vomiting, chest pain, abdominal pain. Review of Systems Review of Systems Constitutional: Denies fever or chills [] Eyes: Denies change in visual acuity, redness, or eye pain [] HENT: Nasal congestion without sore throat Respiratory: Denies cough or shortness of breath [] Cardiovascular: No additional information not addressed in HPI [] GI: Denies abdominal pain, nausea, vomiting, bloody stools or diarrhea [] : Denies dysuria or hematuria [] Musculoskeletal: Myalgia Neurologic: Denies headache, focal weakness or sensory changes [] Endocrine: Denies polyuria or polydipsia [] Allergies Allergies Allergies Coded Allergies Type Severity Reaction Last Updated Verified No Known Drug Allergies 12/15/16 No Physical Exam Physical Exam Constitutional: Well developed, well nourished, no acute distress, non-toxic appearance. [] HENT: Normocephalic, atraumatic, bilateral external ears normal, oropharynx moist, no oral exudates, nose normal. [] Eyes: PERRLA, EOMI, conjunctiva normal, no discharge. [] Neck: Normal range of motion, no tenderness, supple, no stridor. [] Cardiovascular:Heart rate regular rhythm, no murmur [] Lungs & Thorax: Bilateral breath sounds clear to auscultation [] Abdomen: Bowel sounds normal, soft, no tenderness, no masses, no pulsatile masses. [] Skin: Warm, dry, no erythema, no rash. [] Back: No tenderness, no CVA tenderness. [] Extremities: No tenderness, no cyanosis, no clubbing, ROM intact, no edema. [] Neurologic: Alert and oriented X 3, normal motor function, normal sensory function, no focal deficits noted. [] Psychologic: Affect normal, judgement normal, mood normal. [] EKG EKG [] Radiology/Procedures Radiology/Procedures [] Course & Med Decision Making Course & Med Decision Making Pertinent Labs and Imaging studies reviewed. (See chart for details) [] Dragon Disclaimer Dragon Disclaimer This electronic medical record was generated, in whole or in part, using a voice recognition dictation system. Departure Departure Impression: Primary Impression: Viral syndrome Disposition: 01 HOME, SELF-CARE Condition: STABLE Referrals: NO PCP (PCP) [facility] Patient Instructions: Viral Syndrome Scripts Pseudoephedrine Hcl (PSEUDOEPHEDRINE) 120 Mg Tablet.er 120 MG PO BID Y for nasal congestion, #20 TAB.SR Prov: EDNA AVALOS APRN 05/20/17 Ibuprofen (IBUPROFEN) 800 Mg Tablet 800 MG PO PRN Q8HRS Y for PAIN, #20 TAB Prov: EDNA AVALOS APRN 05/20/17 EDNA AVALOS APRN May 20, 2017 15:16
== END 2017-05-20 15:20 | disposition home or self-care (01) ==
LOC: ER 14:35
DX: B34.9 Viral infection, unspecified (principal)
CPT/HCPCS: 99283

== ENCOUNTER 2017-09-08 21:47 | Emergency (ER) | payer OTHER ==
[~2017-09-08] VITALS: Ht 162.6 cm; Wt 83.9 kg
[~2017-09-08 21:47] MED LIST changes: +IBUP-1060 PO; +NAPR-695 PO; -NAPR375T3 PO; +PSEU120T58 PO
[2017-09-08 22:08] VITALS: BP 140/93
[2017-09-08 22:35] LABS: BASO % 0 % (0-3); EOS % 2 % (0-3); HEMATOCRIT 32.3 % (36.0-47.0); HEMOGLOBIN 10.5 g/dL (12.0-15.5); LYMPH % 39 % (24-48); MEAN CORPUSCULAR HEMOGLOBIN 31 pg (25-35); MEAN CORPUSCULAR HGB CONC 32 g/dL (31-37); MEAN CORPUSCULAR VOLUME 95 fL (79-100); MONO % 10 % (0-9); NEUT % 49 % (31-73); PLATELET COUNT 285 x10^3/uL (140-400); RED BLOOD COUNT 3.41 x10^6/uL (3.50-5.40); WHITE BLOOD COUNT 5.2 x10^3/uL (4.0-11.0)
[2017-09-08 22:36] LABS: BILIRUBIN,URINE NEGATIVE (NEG); GLUCOSE,URINE NEGATIVE (NEG); NITRITE,URINE NEGATIVE (NEG); PH,URINE 6.5; PROTEIN,URINE NEGATIVE (NEG-TRACE)
[2017-09-08 22:41] LABS: BACTERIA,URINE MODERATE /HPF (0-FEW); SQUAMOUS EPITHELIAL CELL,UR MOD /LPF
[2017-09-08 22:44] LABS: CALCIUM 8.5 mg/dL (8.5-10.1); CREATININE 0.7 mg/dL (0.6-1.0); GFR 120.6; POTASSIUM 3.6 mmol/L (3.5-5.1)
[2017-09-08] MEDS ORDERED: ONDANSETRON PF 4 MG/2 ML VIAL. IV ONE (22:45)
[2017-09-08] MEDS ORDERED: IV NORMAL SALINE 1000ML BAG 1,000 ML IV ONE (22:45)
[2017-09-08] MEDS ORDERED: KETOROLAC 30 MG/ML INJ. IV ONE (22:45)
[2017-09-08 22:50] LABS: ALBUMIN 3.7 g/dL (3.4-5.0); ALBUMIN/GLOBULIN RATIO 0.8 (1.0-1.7); TOTAL BILIRUBIN 0.6 mg/dL (0.2-1.0); TOTAL PROTEIN 8.2 g/dL (6.4-8.2)
[2017-09-08 23:50] LABS: OBC FLU VALID
[2017-09-08] MEDS ORDERED: BENZ100C PO (23:59)
[2017-09-08] MEDS ORDERED: ONDA4TAB10 SL (23:59)
--- NOTE | 2017-09-08 23:59 | PHYS DOC ---
Past Medical History Past Medical History: No Pertinent History Additional Past Medical Histor: hernia Past Surgical History: Tonsillectomy, Other Additional Past Surgical Histo: abdominal hernia repair 2016 Alcohol Use: None Drug Use: None Adult General Chief Complaint Chief Complaint: ABDOMINAL PAIN HPI HPI Patient is a 27 year old female who presents with cough and abdominal pain. The patient has 3 day history of illness with dry cough, mild generalized headache not sudden in onset, not the worst headache of her life, and generalized abdominal discomfort with nausea and vomiting. She reports subjective fever. Denies vision changes, neck stiffness, hematemesis, diarrhea, hematochezia or melena, dysuria or hematuria. History of abdominal hernia repair. No known past medical history. Review of Systems Review of Systems Constitutional: Reports fever Eyes: Denies change in visual acuity HENT: Denies nasal congestion or sore throat Respiratory: Reports cough, denies shortness of breath Cardiovascular: Denies chest pain or edema GI: Reports abdominal pain, nausea, vomiting, denies bloody stools or diarrhea : Denies dysuria or hematuria Musculoskeletal: Denies back pain or joint pain Integument: Denies rash or skin lesions Neurologic: Reports headache, denies focal weakness or sensory changes All other systems were reviewed and found to be within normal limits, except as documented in this note. Current Medications Current Medications Current Medications Medications (Trade) Dose Ordered Sig/Chey Start Time Stop Time Status Last Admin Dose Admin Ketorolac Tromethamine (Toradol) 30 mg 1X ONCE 09/08/17 22:45 09/08/17 22:46 DC 09/08/17 23:16 30 MG Ondansetron HCl (Zofran) 4 mg 1X ONCE 09/08/17 22:45 09/08/17 22:46 DC 09/08/17 23:16 4 MG Sodium Chloride 1,000 ml @ 1,000 mls/hr 1X ONCE 09/08/17 22:45 09/08/17 23:44 DC 09/08/17 23:15 1,000 MLS/HR Allergies Allergies Allergies Coded Allergies Type Severity Reaction Last Updated Verified No Known Drug Allergies 12/15/16 No Physical Exam Physical Exam Constitutional: obese, no acute distress, non-toxic appearance. HENT: Normocephalic, atraumatic, bilateral external ears normal, oropharynx moist, no tonsillar enlargement or exudate, nose normal. Eyes: PERRLA, EOMI, conjunctiva normal, no discharge. Neck: supple, no stridor. no meningismus, no crepitus. Cardiovascular: RRR, no murmurs, no edema. Lungs & Thorax: LCTAB, no wheezing, no respiratory distress. chest wall no tenderness or crepitus. Abdomen: soft, no focal abdominal tenderness with palpation, no rebound or guarding, no masses or pulsatile masses, nondistended. Skin: Warm, dry, no erythema, no rash. Back: No CVA tenderness. Extremities: No tenderness, no edema. Neurologic: Alert and oriented X 3, cranial nerves II through XII grossly intact , symmetric strength and sensation to upper and lower extremities, no focal deficits noted. Psychologic: Affect normal, judgement normal, mood normal. Current Patient Data Vital Signs Vital Signs Date Time Temp Pulse Resp B/P (MAP) Pulse Ox O2 Delivery O2 Flow Rate FiO2 09/08/17 22:08 99.7 96 20 140/93 (109) 99 Room Air 99.7 Lab Values Laboratory Tests Test 09/08/17 22:00 09/08/17 22:01 09/08/17 22:10 09/08/17 23:25 Urine Collection Type Unknown Urine Color Yellow Urine Clarity Clear Urine pH 6.5 Urine Specific [place] >=1.030 Urine Protein Negative mg/dL (NEG-TRACE) Urine Glucose (UA) Negative mg/dL (NEG) Urine Ketones (Stick) Negative mg/dL (NEG) Urine Blood Negative (NEG) Urine Nitrite Negative (NEG) Urine Bilirubin Negative (NEG) Urine Urobilinogen Dipstick 1.0 mg/dL (0.2 mg/dL) Urine Leukocyte Esterase Negative (NEG) Urine RBC 1-2 /HPF (0-2) Urine WBC 1-4 /HPF (0-4) Urine Squamous Epithelial Cells Mod /LPF Urine Bacteria Moderate /HPF (0-FEW) Urine Mucus Mod /LPF POC Urine HCG, Qualitative Hcg negative (Negative) White Blood Count 5.2 x10^3/uL (4.0-11.0) Red Blood Count 3.41 x10^6/uL (3.50-5.40) L Hemoglobin 10.5 g/dL (12.0-15.5) L Hematocrit 32.3 % (36.0-47.0) L Mean Corpuscular Volume 95 fL (79-100) Mean Corpuscular Hemoglobin 31 pg (25-35) Mean Corpuscular Hemoglobin Concent 32 g/dL (31-37) Red Cell Distribution Width 14.0 % (11.5-14.5) Platelet Count 285 x10^3/uL (140-400) Neutrophils (%) (Auto) 49 % (31-73) Lymphocytes (%) (Auto) 39 % (24-48) Monocytes (%) (Auto) 10 % (0-9) H Eosinophils (%) (Auto) 2 % (0-3) Basophils (%) (Auto) 0 % (0-3) Neutrophils # (Auto) 2.5 x10^3uL (1.8-7.7) Lymphocytes # (Auto) 2.0 x10^3/uL (1.0-4.8) Monocytes # (Auto) 0.5 x10^3/uL (0.0-1.1) Eosinophils # (Auto) 0.1 x10^3/uL (0.0-0.7) Basophils # (Auto) 0.0 x10^3/uL (0.0-0.2) Sodium Level 138 mmol/L (136-145) Potassium Level 3.6 mmol/L (3.5-5.1) Chloride Level 101 mmol/L (98-107) Carbon Dioxide Level 28 mmol/L (21-32) Anion Gap 9 (6-14) Blood Urea Nitrogen 15 mg/dL (7-20) Creatinine 0.7 mg/dL (0.6-1.0) Estimated GFR (Cockcroft-Gault) 120.6 BUN/Creatinine Ratio 21 (6-20) H Glucose Level 89 mg/dL (70-99) Calcium Level 8.5 mg/dL (8.5-10.1) Total Bilirubin 0.6 mg/dL (0.2-1.0) Aspartate Amino Transferase (AST) 18 U/L (15-37) Alanine Aminotransferase (ALT) 17 U/L (14-59) Alkaline Phosphatase 97 U/L (46-116) Total Protein 8.2 g/dL (6.4-8.2) Albumin 3.7 g/dL (3.4-5.0) Albumin/Globulin Ratio 0.8 (1.0-1.7) L Lipase 173 U/L (73-393) Influenza Type A Antigen Negative (NEGATIVE) Influenza Type B Antigen Negative (NEGATIVE) Laboratory Tests 09/08/17 22:10 Laboratory Tests 09/08/17 22:10 Microbiology 09/08/17 Urine Culture - Final, Complete 09/08/17 Urine Culture Result 1 (SARA) - Final, Complete EKG EKG [] Radiology/Procedures Radiology/Procedures CXR: interpreted by me: no cardiomegaly, no infiltrate, no pneumothorax, no acute process. abnormal appearance of neck & left chest is artifact from the patient's hair.[] Course & Med Decision Making Course & Med Decision Making Pertinent Labs and Imaging studies reviewed. (See chart for details) The patient cough, headache, abdominal pain and vomiting. Well-appearing, stable vitals. No significant abnormality on evaluation here which included labs , UA, rapid flu swab, CXR. She is anemic and her hemoglobin appears stable. She felt better after treatment here. Recommend rest, hydration, Zofran, Tylenol or ibuprofen as needed for pain or fever. She was unsure whether she had undergone tubal ligation in the past and wondered if she could be . She is not . I reviewed her medical record and it does appear that she had tubal ligation at this hospital in 02/2016. I informed the patient so that she would be indicated about her own medical history. She is instructed to follow-up with primary care if not improving in 2-3 days. Return to the emergency department for high fever, severe shortness of breath or chest pain, severe abdominal pain, uncontrolled vomiting, any otherwise worsening condition. Discharged home in stable condition. [] Dragon Disclaimer Dragon Disclaimer This electronic medical record was generated, in whole or in part, using a voice recognition dictation system. Departure Departure Impression: Primary Impression: Upper respiratory infection Additional Impression: Nausea & vomiting Disposition: 01 HOME, SELF-CARE Condition: STABLE Referrals: NO PCP (PCP) Chiki CAMERON MD Patient Instructions: Upper Respiratory Infection, Adult, [id number] Additional Instructions: You were seen in the emergency department today. Your tests here did not show any serious cause of your symptoms. This is likely a virus that should get better on its own. Please rest, drink fluids to stay hydrated, take Tylenol or ibuprofen for pain or fever, use Tessalon Perles for cough and Zofran for nausea. Follow-up with primary care physician such as Dr. Cameron if not improving in 2-3 days. Return to the emergency department for high fever, severe shortness of breath or chest pain, severe abdominal pain, uncontrolled vomiting , any otherwise worsening condition. Scripts Ondansetron (ZOFRAN ODT) 4 Mg Tab.rapdis 1 TAB SL Q8HRS Y for NAUSEA/VOMITING, #10 TAB Prov: MARIANA ENCARNACION MD 09/08/17 Benzonatate (TESSALON PERLE) 100 Mg Capsule 100 MG PO TID Y for COUGH, #15 CAP Prov: MARIANA ENCARNACION MD 09/08/17 Problem Qualifiers Primary Impression: Upper respiratory infection URI type: unspecified URI Qualified Codes: J06.9 - Acute upper respiratory infection, unspecified MARIANA ENCARNACION MD Sep 08, 2017 23:59
--- NOTE | 2017-09-09 07:57 | RAD ---
PA and lateral views of the chest were obtained. History: 2 days of dizziness Comparison: none The heart and pulmonary vasculature appear within normal limits. The lungs are clear. The pleural margins are clear. Impression: No acute chest process is seen.
== END 2017-09-09 00:05 | disposition home or self-care (01) ==
LOC: ER 21:47
DX: J06.9 Acute upper respiratory infection, unspecified (principal); R11.2 Nausea with vomiting, unspecified; R10.84 Generalized abdominal pain; R51 Headache; R50.9 Fever, unspecified
CPT/HCPCS: 36415; 71020; 80053; 81001; 81025; 83690; 85025; 87086; 87804; 96361; 96374; 96375; 99285; J1885; J2405; J7030

== ENCOUNTER 2018-01-09 20:53 | Emergency (ER) | payer OTHER ==
[2018-01-09 21:14] LABS: URINE HCG POC HCG NEGATIVE (Negative)
[2018-01-09 21:30] LABS: BILIRUBIN,URINE NEGATIVE (NEG); CLARITY,URINE CLEAR; COLOR,URINE YELLOW; GLUCOSE,URINE NEGATIVE (NEG); NITRITE,URINE NEGATIVE (NEG); PROTEIN,URINE NEGATIVE (NEG-TRACE)
[2018-01-09] MEDS ORDERED: CONTRAST GIVEN MC (21:30)
[2018-01-09 21:42] LABS: BACTERIA,URINE MODERATE /HPF (0-FEW); RBC,URINE OCC /HPF (0-2); SQUAMOUS EPITHELIAL CELL,UR MANY /LPF; WBC,URINE OCC /HPF (0-4)
[2018-01-09 22:49] LABS: ADD MAN DIFF? NO
[2018-01-09 22:55] LABS: BASO % 1 % (0-3); EOS # 0.1 x10^3/uL (0.0-0.7); EOS % 1 % (0-3); HEMATOCRIT 28.4 % (36.0-47.0); HEMOGLOBIN 9.4 g/dL (12.0-15.5); LYMPH # 3.1 x10^3/uL (1.0-4.8); LYMPH % 56 % (24-48); MEAN CORPUSCULAR HEMOGLOBIN 31 pg (25-35); MEAN CORPUSCULAR HGB CONC 33 g/dL (31-37); MEAN CORPUSCULAR VOLUME 94 fL (79-100); MONO # 0.4 x10^3/uL (0.0-1.1); MONO % 8 % (0-9); NEUT # 1.9 x10^3uL (1.8-7.7); NEUT % 34 % (31-73); PLATELET COUNT 317 x10^3/uL (140-400); RED BLOOD COUNT 3.02 x10^6/uL (3.50-5.40); RED CELL DISTRIBUTION WIDTH 14.2 % (11.5-14.5); WHITE BLOOD COUNT 5.5 x10^3/uL (4.0-11.0)
[2018-01-09 23:08] LABS: ANION GAP 7 (6-14); BLOOD UREA NITROGEN 15 mg/dL (7-20); BUN/CREATININE RATIO 21 (6-20); CALCIUM 8.6 mg/dL (8.5-10.1); CARBON DIOXIDE 29 mmol/L (21-32); CHLORIDE 105 mmol/L (98-107); CREATININE 0.7 mg/dL (0.6-1.0); GFR 120.6; GLUCOSE 99 mg/dL (70-99); POTASSIUM 3.6 mmol/L (3.5-5.1); SODIUM 141 mmol/L (136-145)
[2018-01-09 23:13] LABS: ALBUMIN 3.2 g/dL (3.4-5.0); ALBUMIN/GLOBULIN RATIO 0.8 (1.0-1.7); ALK PHOS 78 U/L (46-116); ALT (SGPT) 14 U/L (14-59); AST (SGOT) 14 U/L (15-37); LIPASE 147 U/L (73-393); TOTAL BILIRUBIN 0.4 mg/dL (0.2-1.0); TOTAL PROTEIN 7.1 g/dL (6.4-8.2)
[2018-01-09] MEDS: IOHEXOL 300 MG/ML 100ML VIAL. IV (23:45)
[2018-01-10] MEDS: KETOROLAC 30 MG/ML INJ. IV (00:12)
[2018-01-10] MEDS ORDERED: IOHEXOL 300 MG/ML 100ML VIAL. IV (01:45)
[2018-01-10] MEDS ORDERED: CONTRAST GIVEN MC (01:45)
== END 2018-01-10 00:34 | disposition home or self-care (01) ==
LOC: ER 01-10 00:34
DX: R10.84 Generalized abdominal pain (principal); D64.9 Anemia, unspecified; R42 Dizziness and giddiness; Z98.890 Other specified postprocedural states
CPT/HCPCS: 36415; 74177; 80053; 81001; 81025; 83690; 85025; 87086; 96374; 99285-25; J1885; Q9967

== ENCOUNTER 2018-02-18 17:24 | Emergency (ER) | payer OTHER ==
[2018-02-18] MEDS: ALBUTEROL SULFATE 2.5 MG/3 ML NEBU. NEB (18:23)
[2018-02-18] MEDS: ACETAMINOPHEN 500 MG TABLET PO (18:30)
[2018-02-18 18:55] LABS: INFLUENZA A PATIENT NEGATIVE (NEGATIVE); INFLUENZA B PATIENT NEGATIVE (NEGATIVE); OBC FLU VALID
[2018-02-18 19:06] LABS: URINE HCG POC HCG NEGATIVE (Negative)
[2018-02-18 19:43] LABS: BILIRUBIN,URINE NEGATIVE (NEG); CLARITY,URINE CLEAR; COLOR,URINE YELLOW; GLUCOSE,URINE NEGATIVE (NEG); NITRITE,URINE NEGATIVE (NEG); PH,URINE 7.5; PROTEIN,URINE NEGATIVE (NEG-TRACE)
[2018-02-18 19:57] LABS: BACTERIA,URINE FEW /HPF (0-FEW); SQUAMOUS EPITHELIAL CELL,UR MOD /LPF
[2018-02-19 08:23] LABS: NEGATIVE OBC STREP NEG; POSITIVE OBC STREP POS
== END 2018-02-18 19:46 | disposition home or self-care (01) ==
LOC: ER 19:46
DX: J06.9 Acute upper respiratory infection, unspecified (principal)
CPT/HCPCS: 81001; 81025; 87070; 87804; 87804-59; 87880; 94640; 99284; J7613

== ENCOUNTER 2018-02-20 18:09 | Emergency (ER) | payer OTHER | END 2018-02-20 20:08 | disposition home or self-care (01) | LOC: ER 20:08 | DX: J30.9 Allergic rhinitis, unspecified (principal); J06.9 Acute upper respiratory infection, unspecified | CPT/HCPCS: 99283 ==

== ENCOUNTER 2018-05-19 12:58 | Emergency (ER) | payer OTHER ==
[~2018-05-19] VITALS: Ht 160 cm; Wt 87.5 kg
[~2018-05-19 12:58] MED LIST changes: +CETI10TA16 PO; +ONDA4TAB10 SL; +PROAIR HFA8.5 GM INH; +[UNRECOGNIZED DRUG - CODE] PO
[2018-05-19 13:07] VITALS: BP 122/69
--- NOTE | 2018-05-19 13:32 | PHYS DOC ---
Past Medical History Past Medical History: No Pertinent History Additional Past Medical Histor: hernia Past Surgical History: Other Additional Past Surgical Histo: HERNIA Alcohol Use: None Drug Use: None Adult General Chief Complaint Chief Complaint: UPPER EXTREMITY PAIN [facility] HPI Patient is a 27 year old female who presents with back of lower neck sharp pain that radiates to left shoulder and down the posterior part of left arm to the wrist since . Patient states that at times the left hand will fall asleep but is easy to awake it. Patient states the pain is worse when she moves. Patient states that she also has some chest mid chest tightness since . Patient denies any shortness of air or edema in any extremities. Patient does not state that the hand or arm become cold. Review of Systems Review of Systems Constitutional: Denies fever or chills [] Eyes: Denies change in visual acuity, redness, or eye pain [] HENT: Denies nasal congestion or sore throat [] Respiratory: Denies cough or shortness of breath [] Cardiovascular: No additional information not addressed in HPI [] GI: Denies abdominal pain, nausea, vomiting, bloody stools or diarrhea [] : Denies dysuria or hematuria [] Musculoskeletal: Denies back pain or joint pain. Back of lower neck pain that radiates to left shoulder and down posterior left arm to wrist. Left hand tingling at times. Integument: Denies rash or skin lesions [] Neurologic: Denies headache, focal weakness or sensory changes [] Endocrine: Denies polyuria or polydipsia [] All other systems were reviewed and found to be within normal limits, except as documented in this note. Current Medications Current Medications Current Medications Medications (Trade) Dose Ordered Sig/[facility] Start Time Stop Time Status Last Admin Dose Admin Ketorolac Tromethamine (Toradol Im) 60 mg 1X ONCE 05/19/18 13:30 05/19/18 13:31 DC 05/19/18 14:20 60 MG Allergies Allergies Allergies Coded Allergies Type Severity Reaction Last Updated Verified No Known Drug Allergies 12/15/16 No Physical Exam Physical Exam Constitutional: Well developed, well nourished, no acute distress, non-toxic appearance. [] HENT: Normocephalic, atraumatic, bilateral external ears normal, oropharynx moist, no oral exudates, nose normal. [] Eyes: PERRLA, EOMI, conjunctiva normal, no discharge. [] Neck: Normal range of motion, no tenderness, supple, no stridor. [] Cardiovascular:Heart rate regular rhythm, no murmur [] Lungs & Thorax: Bilateral breath sounds clear to auscultation [] Abdomen: Bowel sounds normal, soft, no tenderness, no masses, no pulsatile masses. [] Skin: Warm, dry, no erythema, no rash. [] Back: No tenderness, no CVA tenderness. [] Extremities: No tenderness, no cyanosis, no clubbing, ROM intact, no edema. [] Neurologic: Alert and oriented X 3, normal motor function, normal sensory function, no focal deficits noted. [] Psychologic: Affect normal, judgement normal, mood normal. [] Current Patient Data Vital Signs Vital Signs Date Time Temp Pulse Resp B/P (MAP) Pulse Ox O2 Delivery O2 Flow Rate FiO2 05/19/18 13:07 98.0 89 16 122/69 (86) 98 Room Air 98.0 Lab Values Laboratory Tests Test 05/19/18 14:10 POC Urine HCG, Qualitative Hcg negative (Negative) EKG EKG Sinus rhythm, T abnormality in inferior leads read by Dr. Nguyen Interpretation Time: 1417 Radiology/Procedures Radiology/Procedures Left shoulder, C-Spine[] Impressions: [facility] [address] [place], [place] [id number] IMAGING REPORT Signed PATIENT: ERIC FRANCOIS ACCOUNT: [id number] : 1990 LOCATION: ER AGE: 27 SEX: F EXAM STATUS: REG ER ORD. PHYSICIAN: MIKE HARRIS APRN REASON: Chest tightness PROCEDURE: CERVICAL SPINE 2-3V 3 view cervical spine dated 05/19/2018. No comparison available. Clinical data indication: Neck pain for 3 days. FINDINGS: AP, lateral and odontoid views obtained. Straightening of the normal cervical lordosis, otherwise sagittal alignment is anatomic. Vertebral body heights are maintained. No prevertebral soft tissue swelling. Posterior elements are intact. C1-C2 articulation unremarkable. IMPRESSION: No acute findings. Electronically signed by: Wan Jasso MD (05/19/2018 1:50 PM) [email or web address] DICTATED and SIGNED BY: WAN JASSO MD DATE: 05/19/18 [address] [place] [address] IMAGING REPORT Signed PATIENT: ERIC FRANCOIS ACCOUNT: [id number] : 1990 LOCATION: ER AGE: 27 SEX: F EXAM STATUS: REG ER ORD. PHYSICIAN: MIKE HARRIS APRN REASON: Chest tightness PROCEDURE: CHEST PA & LATERAL CHEST PA LATERAL dated 05/19/2018 1:19 PM. Comparison: 09/08/2017 Clinical Indication: chest tightness x 3 days
no known injury. Findings: PA and lateral views of the chest were obtained. Heart and mediastinal contours within normal limits. Lungs are clear without focal consolidation. Vascular interstitium within normal limits. No pleural effusion or pneumothorax. Minimal linear opacity at the left lung base, likely scar or atelectasis. Impression: No acute radiographic abnormality. Electronically signed by: Wan Jasso MD (05/19/2018 1:49 PM) [id number] DICTATED and SIGNED BY: WAN JASSO MD DATE: 05/19/18 [address] [place] [address] IMAGING REPORT Signed PATIENT: ERIC FRANCOIS ACCOUNT: [id number] : 1990 LOCATION: ER AGE: 27 SEX: F EXAM STATUS: REG ER ORD. PHYSICIAN: MIKE HARRIS APRN REASON: Chest tightness PROCEDURE: SHOULDER 2+V LEFT Three-view left shoulder dated 05/19/2018. No comparison available. Clinical data indication: Shoulder pain for 3 days. FINDINGS: 3 views left shoulder show normal bony alignment. No displaced fracture. No acute osseous or articular abnormality. IMPRESSION: No acute findings Electronically signed by: Wan Jasso MD (05/19/2018 1:48 PM) [id number] DICTATED and SIGNED BY: WAN JASSO MD DATE: 05/19/18 5112 Course & Med Decision Making Course & Med Decision Making Patient is alert and oriented. Patient states that she has upper pain that radiates from lower back of neck to left shoulder and down posterior arm to her wrist. Patient states this pain going on since . Patient states occasionally her left hand feels like it falls asleep but is easily awakened by tapping the hand. Upon examination the patient has no extremity swelling. Patient has strong and equal bilateral radial pulses present. Refill bilateral hands is less than 3 seconds. States pain is worse with movement. Patient states sitting there the pain is a 6 out of 10 and with movement it is 10 out of 10. Patient states that she notices sitting in the car that she feels the pain more. Patient denies any drug allergies and denies any daily medications. Patient states she has not taken any pain medications. Patient is neurologically intact. Patient states that she also has mid chest tightness but denies shortness of air. She states that mid chest tightness does not radiate anywhere else. Patient denies any recent illness cough. In the ED today the patient will receive a chest x-ray, EKG, shoulder x-ray. Patient will also receive an IM Toradol shot as she is driving and has small children with her. Chest x-ray, shoulder x-ray, and C-spine x-ray show no acute findings. Patient' s EKG shows sinus rhythm with some T abnormality in inferior leads and is read by Dr. Nguyen. Patient has presumable cervical radiculopathy. Patient will be given a prescription for a Medrol Dosepak and take ibuprofen for pain. Patient to follow-up with her primary care provider if not getting better. [] Dragon Disclaimer Dragon Disclaimer This electronic medical record was generated, in whole or in part, using a voice recognition dictation system. Departure Departure Impression: Primary Impression: Cervical radiculopathy Disposition: 01 HOME, SELF-CARE Condition: STABLE Referrals: NO PCP (PCP) Patient Instructions: Cervical Radiculopathy Additional Instructions: Follow-up with the primary care provider if needed. Take ibuprofen for pain and take all medications as prescribed. Scripts Methylprednisolone (MEDROL) 4 Mg Tab.ds.pk 4 MG PO DAILY for 5 Days, #5 TAB Prov: MIKE HARRIS FLOAT TENDER 05/19/18 Attending Signature Attending Signature I have reviewed the PA/DIE FINISHER FORGING's note and plan of care. I was available for consultation as needed during the patient's visit in the emergency department. I agree with the clinical impression, plan, and disposition. MIKE HARRIS APRN May 19, 2018 13:32 WAN MATT DO May 19, 2018 17:11
--- NOTE | 2018-05-19 13:52 | RAD ---
Three-view left shoulder dated 05/19/2018. No comparison available. Clinical data indication: Shoulder pain for 3 days. FINDINGS: 3 views left shoulder show normal bony alignment. No displaced fracture. No acute osseous or articular abnormality. IMPRESSION: No acute findings Electronically signed by: Wan Jasso MD (05/19/2018 1:48 PM) [id number]
--- NOTE | 2018-05-19 13:52 | RAD ---
CHEST PA LATERAL dated 05/19/2018 1:19 PM. Comparison: 09/08/2017 Clinical Indication: chest tightness x 3 days
no known injury. Findings: PA and lateral views of the chest were obtained. Heart and mediastinal contours within normal limits. Lungs are clear without focal consolidation. Vascular interstitium within normal limits. No pleural effusion or pneumothorax. Minimal linear opacity at the left lung base, likely scar or atelectasis. Impression: No acute radiographic abnormality. Electronically signed by: Wan Jasso MD (05/19/2018 1:49 PM) [email or web address]
--- NOTE | 2018-05-19 13:53 | RAD ---
3 view cervical spine dated 05/19/2018. No comparison available. Clinical data indication: Neck pain for 3 days. FINDINGS: AP, lateral and odontoid views obtained. Straightening of the normal cervical lordosis, otherwise sagittal alignment is anatomic. Vertebral body heights are maintained. No prevertebral soft tissue swelling. Posterior elements are intact. C1-C2 articulation unremarkable. IMPRESSION: No acute findings. Electronically signed by: Wan Jasso MD (05/19/2018 1:50 PM) [email or web address]
[2018-05-19] MEDS: KETOROLAC 60 MG/2 ML INJ. IM ONE (14:20)
[2018-05-19] MEDS ORDERED: METH4TAB2 PO (14:36)
--- NOTE | 2018-05-19 14:47 | EKG ---
[facility] [address] [place] [address] Test Date: 2018-05-19 Test Time: 14:17:27 Pat Name: ERIC FRANCOIS Department: Room: Gender: F Battery Hand: SUZANNE : 1990 Requested By: MIKE HARRIS Order Number: [id number] Reading MD: Devon Mcclain Measurements Intervals [place] Rate: 71 P: 46 AR: 170 QRS: 49 QRSD: 98 T: -17 QT: 350 QTc: 384 Interpretive Statements SINUS RHYTHM T ABNORMALITY IN INFERIOR LEADS ABNORMAL ECG No previous ECG available for comparison Electronically Signed On 05-21-2018 13:05:07 CDT by Devon Mcclain
== END 2018-05-19 14:47 | disposition home or self-care (01) ==
LOC: ER 12:58
DX: M54.12 Radiculopathy, cervical region (principal); R07.89 Other chest pain
CPT/HCPCS: 71046; 72040; 73030; 81025; 93005; 96372; 99284; J1885

== ENCOUNTER 2018-09-08 08:59 | Emergency (ER) | payer OTHER ==
[~2018-09-08] VITALS: Ht 162.6 cm; Wt 87.5 kg
[~2018-09-08 08:59] MED LIST changes: +ALBU2.5V8 INH; -HYDR-2762 PO; +HYDR-2765 PO; +HYDR-3164 PO; -HYDR-971 PO; +METH4TAB2 PO; -PROAIR HFA8.5 GM INH
[2018-09-08] MEDS ORDERED: CYCL5TAB PO (09:20)
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
== END 2018-09-08 09:34 | disposition home or self-care (01) ==
LOC: ER 08:59
DX: M79.10 Myalgia, unspecified site (principal); M54.5 Low back pain; M25.561 Pain in right knee; M25.512 Pain in left shoulder; M25.562 Pain in left knee; V89.2XXA Person injured in unspecified motor-vehicle accident, traffic, initial encounter; Y93.89 Activity, other specified; Y92.488 Other paved roadways as the place of occurrence of the external cause; Y99.8 Other external cause status
CPT/HCPCS: 99283

== ENCOUNTER 2018-12-04 17:39 | Emergency (ER) | payer OTHER ==
[~2018-12-04] VITALS: Ht 162.6 cm; Wt 87.5 kg
[~2018-12-04 17:39] MED LIST changes: +CYCL5TAB PO
[2018-12-04] MEDS ORDERED: IV NORMAL SALINE 1000ML BAG 1,000 ML IV SCH (18:22)
[2018-12-04] MEDS ORDERED: LIDO:MAALOX 1:1 20 ML SINGLE DOSE. SWSW ONE (18:30)
--- NOTE | 2018-12-04 18:41 | PHYS DOC ---
Past Medical History Past Medical History: No Pertinent History Additional Past Medical Histor: hernia Past Surgical History: Other Additional Past Surgical Histo: VENTRAL HERNIA REPAIR, trach placed and removed as infant Alcohol Use: None Drug Use: None Adult General Chief Complaint Chief Complaint: ABDOMINAL PAIN HPI HPI Patient is a 28 year old female who presents with epigastric pain after she eats and drinks that comes and goes for the last 6 months. Patient currently rates her epigastric pain a 9 out of 10. States it is sharp at times. Patient states that also this morning she had slight burning with urination. Review of Systems Review of Systems Constitutional: Denies fever or chills [] Eyes: Denies change in visual acuity, redness, or eye pain [] HENT: Denies nasal congestion or sore throat [] Respiratory: Denies cough or shortness of breath [] Cardiovascular: No additional information not addressed in HPI [] GI: upper abdominal pain, denies nausea, vomiting, bloody stools or diarrhea [] : dysuria or denies hematuria [] Musculoskeletal: Denies back pain or joint pain [] Integument: Denies rash or skin lesions [] Neurologic: Denies headache, focal weakness or sensory changes [] All other systems were reviewed and found to be within normal limits, except as documented in this note. Current Medications Current Medications Current Medications Medications (Trade) Dose Ordered Sig/Chey Start Time Stop Time Status Last Admin Dose Admin Iohexol (Omnipaque 300 Mg/ml) 75 ml 1X ONCE 12/04/18 19:30 12/04/18 19:31 DC 12/04/18 20:03 75 ML Multi-Ingredient Mouthwash/Gargle (Gi Cocktail) 20 ml 1X ONCE 12/04/18 18:30 12/04/18 18:31 DC 12/04/18 18:40 20 ML Sodium Chloride 1,000 ml @ 1,000 mls/hr Q1H 12/04/18 18:22 12/04/18 19:21 DC 12/04/18 18:40 1,000 MLS/HR Allergies Allergies Allergies Coded Allergies Type Severity Reaction Last Updated Verified No Known Drug Allergies 12/15/16 No Physical Exam Physical Exam Constitutional: Well developed, well nourished, no acute distress, non-toxic appearance. [] HENT: Normocephalic, atraumatic, bilateral external ears normal, oropharynx moist, no oral exudates, nose normal. [] Eyes: PERRLA, EOMI, conjunctiva normal, no discharge. [] Neck: Normal range of motion, no tenderness, supple, no stridor. [] Cardiovascular:Heart rate regular rhythm, no murmur [] Lungs & Thorax: Bilateral breath sounds clear to auscultation [] Abdomen: Bowel sounds normal, soft, epigastric and bilateral lower tenderness, no masses, no pulsatile masses. [] Skin: Warm, dry, no erythema, no rash. [] Back: No tenderness, no CVA tenderness. [] Extremities: No tenderness, no cyanosis, no clubbing, ROM intact, no edema. [] Neurologic: Alert and oriented X 3, normal motor function, normal sensory function, no focal deficits noted. [] Psychologic: Affect normal, judgement normal, mood normal. [] Current Patient Data Vital Signs Vital Signs Date Time Temp Pulse Resp B/P (MAP) Pulse Ox O2 Delivery O2 Flow Rate FiO2 12/04/18 20:20 74 17 119/68 (85) 99 Room Air 12/04/18 18:10 98.7 98.7 Lab Values Laboratory Tests Test 12/04/18 18:05 12/04/18 18:16 12/04/18 18:50 Urine Collection Type Unknown Urine Color Yellow Urine Clarity Clear Urine pH 7.0 Urine Specific Romance 1.025 Urine Protein Negative mg/dL (NEG-TRACE) Urine Glucose (UA) Negative mg/dL (NEG) Urine Ketones (Stick) Negative mg/dL (NEG) Urine Blood Negative (NEG) Urine Nitrite Negative (NEG) Urine Bilirubin Negative (NEG) Urine Urobilinogen Dipstick 1.0 mg/dL (0.2 mg/dL) Urine Leukocyte Esterase Negative (NEG) Urine RBC 0 /HPF (0-2) Urine WBC 0 /HPF (0-4) Urine Squamous Epithelial Cells Many /LPF Urine Bacteria 0 /HPF (0-FEW) Urine Mucus Marked /LPF Urine Opiates Screen Neg (NEG) Urine Methadone Screen Neg (NEG) Urine Barbiturates Neg (NEG) Urine Phencyclidine Screen Neg (NEG) Urine Amphetamine/Methamphetamine Neg (NEG) Urine Benzodiazepines Screen Neg (NEG) Urine Cocaine Screen Neg (NEG) Urine Cannabinoids Screen Pos (NEG) Urine Ethyl Alcohol Neg (NEG) POC Urine HCG, Qualitative Hcg negative (Negative) White Blood Count 5.8 x10^3/uL (4.0-11.0) Red Blood Count 3.39 x10^6/uL (3.50-5.40) L Hemoglobin 10.8 g/dL (12.0-15.5) L Hematocrit 32.8 % (36.0-47.0) L Mean Corpuscular Volume 97 fL (79-100) Mean Corpuscular Hemoglobin 32 pg (25-35) Mean Corpuscular Hemoglobin Concent 33 g/dL (31-37) Red Cell Distribution Width 13.8 % (11.5-14.5) Platelet Count 321 x10^3/uL (140-400) Neutrophils (%) (Auto) 56 % (31-73) Lymphocytes (%) (Auto) 35 % (24-48) Monocytes (%) (Auto) 8 % (0-9) Eosinophils (%) (Auto) 1 % (0-3) Basophils (%) (Auto) 1 % (0-3) Neutrophils # (Auto) 3.2 x10^3uL (1.8-7.7) Lymphocytes # (Auto) 2.0 x10^3/uL (1.0-4.8) Monocytes # (Auto) 0.5 x10^3/uL (0.0-1.1) Eosinophils # (Auto) 0.0 x10^3/uL (0.0-0.7) Basophils # (Auto) 0.0 x10^3/uL (0.0-0.2) Sodium Level 140 mmol/L (136-145) Potassium Level 3.8 mmol/L (3.5-5.1) Chloride Level 102 mmol/L (98-107) Carbon Dioxide Level 30 mmol/L (21-32) Anion Gap 8 (6-14) Blood Urea Nitrogen 7 mg/dL (7-20) Creatinine 0.6 mg/dL (0.6-1.0) Estimated GFR (Cockcroft-Gault) 143.0 BUN/Creatinine Ratio 12 (6-20) Glucose Level 93 mg/dL (70-99) Calcium Level 9.1 mg/dL (8.5-10.1) Total Bilirubin 0.9 mg/dL (0.2-1.0) Aspartate Amino Transferase (AST) 15 U/L (15-37) Alanine Aminotransferase (ALT) 17 U/L (14-59) Alkaline Phosphatase 77 U/L (46-116) Total Protein 7.8 g/dL (6.4-8.2) Albumin 3.4 g/dL (3.4-5.0) Albumin/Globulin Ratio 0.8 (1.0-1.7) L Lipase 121 U/L (73-393) Laboratory Tests 12/04/18 18:50 Laboratory Tests 12/04/18 18:50 EKG EKG [] Radiology/Procedures Radiology/Procedures [] Impressions: [facility] [address] [place] [address] IMAGING REPORT Signed PATIENT: ERIC FRANCOIS ACCOUNT: [id number] : 1990 LOCATION: ER AGE: 28 SEX: F EXAM STATUS: REG ER ORD. PHYSICIAN: MIKE HARRIS APRN REASON: UPPER ABD PAIN. OMNI 300, 75ml PROCEDURE: CT ABD PELV W/ IV CONTRST ONLY CT abdomen and pelvis with contrast. HISTORY: Upper abdominal pain CT scan the abdomen and pelvis was done using 75 mL Omnipaque 300 contrast. There is mild linear scarring or atelectasis in the right lower lobe. There is also linear scarring or atelectasis slightly more prominent in the left lower lobe. There is no effusion. Lower lobe density is similar to the old study from December 2017. Liver is normal in appearance. Gallbladder is contracted. Spleen and adrenal glands are normal. Pancreas is normal. There is no mass or hydronephrosis in the kidneys. There is no bowel obstruction. There is moderate stool in the colon. The uterus is enlarged. There is endometrial thickening in the uterus, the pattern is similar to the prior exam.. Ovaries are normal the appendix is not enlarged. There is soft tissue thickening at the umbilicus similar to the prior examination. IMPRESSION: 1. Enlarged uterus with endometrial thickening similar to the prior study. 2. Scarring or atelectasis in the lung bases. 3. Contracted gallbladder. 4. No other acute finding. Electronically signed by: Jas Rohtman MD (12/04/2018 8:41 PM) [id number] DICTATED and SIGNED BY: JAS ROTHMAN MD DATE: 12/04/182040 Course & Med Decision Making Course & Med Decision Making Patient is a 28 year old female who presents with epigastric pain after she eats and drinks that comes and goes for the last 6 months. Patient currently rates her epigastric pain a 9 out of 10. States it is sharp at times. Patient states that also this morning she had slight burning with urination. Alert and oriented. Skin pink warm and dry. Membranes membranes are moist. Lungs are clear to auscultation all lobes. Speaks in full clear sentences. Abdomen is soft and slightly tender epigastric area and low abdomen bilaterally with palpation. Patient is not guarding her abdomen. Vital signs within normal limits. Afebrile. Patient denies nausea, vomiting, diarrhea, fever, shortness breath, chest pain, abnormal vaginal discharge. PERRLA. Blood work unremarkable. Urine shows no infection. Urine is positive for marijuana. CT abdomen pelvis shows 1. Enlarged uterus with endometrial thickening similar to the prior study. 2. Scarring or atelectasis in the lung bases. 3. Contracted gallbladder. 4. No other acute finding. Patient states that the GI cocktail did not help her much. She is given one Gallina before discharge. Patient will be discharged with generalized abdominal pain and I will refer her to a GI doctor because this pain has been going on for the last 6 months or more. Dragon Disclaimer Dragon Disclaimer This electronic medical record was generated, in whole or in part, using a voice recognition dictation system. Departure Departure Impression: Primary Impression: Abdominal pain Disposition: HOME, SELF-CARE Condition: STABLE Referrals: NO PCP (PCP) RHONDA LACKEY MD Patient Instructions: Abdominal Pain (Nonspecific) Additional Instructions: Follow up with GI doctor. Take medication as prescribed. Scripts Famotidine (PEPCID) 20 Mg Tablet 20 MG PO BID, #20 TAB Prov: MIKE HARRIS GLUING MACHINE OPERATOR 12/04/18 Problem Qualifiers Primary Impression: Abdominal pain Abdominal location: epigastric Qualified Codes: R10.13 - Epigastric pain MIKE HARRIS GLUING MACHINE OPERATOR Dec 04, 2018 18:41
[2018-12-04 18:48] LABS: BILIRUBIN,URINE NEGATIVE (NEG); CLARITY,URINE CLEAR; COLOR,URINE YELLOW; NITRITE,URINE NEGATIVE (NEG); PROTEIN,URINE NEGATIVE (NEG-TRACE)
[2018-12-04 18:53] LABS: BARBITURATES NEG (NEG); BENZODIAZEPINES NEG (NEG); CANNABINOIDS POS (NEG); COCAINE NEG (NEG); METHADONE NEG (NEG); OPIATES NEG (NEG); PHENCYCLIDINE NEG (NEG)
[2018-12-04 18:54] LABS: BACTERIA,URINE 0 /HPF (0-FEW); RBC,URINE 0 /HPF (0-2); SQUAMOUS EPITHELIAL CELL,UR MANY /LPF; WBC,URINE 0 /HPF (0-4)
[2018-12-04 19:02] LABS: AMPHETAMINE/METHAMPHETAMINE NEG (NEG)
[2018-12-04 19:03] LABS: BASO % 1 % (0-3); EOS % 1 % (0-3); HEMATOCRIT 32.8 % (36.0-47.0); HEMOGLOBIN 10.8 g/dL (12.0-15.5); LYMPH % 35 % (24-48); MEAN CORPUSCULAR HEMOGLOBIN 32 pg (25-35); MEAN CORPUSCULAR HGB CONC 33 g/dL (31-37); MEAN CORPUSCULAR VOLUME 97 fL (79-100); MONO # 0.5 x10^3/uL (0.0-1.1); MONO % 8 % (0-9); NEUT # 3.2 x10^3uL (1.8-7.7); NEUT % 56 % (31-73); PLATELET COUNT 321 x10^3/uL (140-400); RED BLOOD COUNT 3.39 x10^6/uL (3.50-5.40); RED CELL DISTRIBUTION WIDTH 13.8 % (11.5-14.5); WHITE BLOOD COUNT 5.8 x10^3/uL (4.0-11.0)
[2018-12-04 19:10] LABS: CALCIUM 9.1 mg/dL (8.5-10.1); CREATININE 0.6 mg/dL (0.6-1.0); POTASSIUM 3.8 mmol/L (3.5-5.1)
[2018-12-04 19:16] LABS: ALBUMIN 3.4 g/dL (3.4-5.0); ALBUMIN/GLOBULIN RATIO 0.8 (1.0-1.7); TOTAL BILIRUBIN 0.9 mg/dL (0.2-1.0); TOTAL PROTEIN 7.8 g/dL (6.4-8.2)
[2018-12-04] MEDS ORDERED: IOHEXOL 300 MG/ML 100ML VIAL. IV ONE (19:30)
--- NOTE | 2018-12-04 20:44 | RAD ---
CT abdomen and pelvis with contrast. HISTORY: Upper abdominal pain CT scan the abdomen and pelvis was done using 75 mL Omnipaque 300 contrast. There is mild linear scarring or atelectasis in the right lower lobe. There is also linear scarring or atelectasis slightly more prominent in the left lower lobe. There is no effusion. Lower lobe density is similar to the old study from December 2017. Liver is normal in appearance. Gallbladder is contracted. Spleen and adrenal glands are normal. Pancreas is normal. There is no mass or hydronephrosis in the kidneys. There is no bowel obstruction. There is moderate stool in the colon. The uterus is enlarged. There is endometrial thickening in the uterus, the pattern is similar to the prior exam.. Ovaries are normal the appendix is not enlarged. There is soft tissue thickening at the umbilicus similar to the prior examination. IMPRESSION: 1. Enlarged uterus with endometrial thickening similar to the prior study. 2. Scarring or atelectasis in the lung bases. 3. Contracted gallbladder. 4. No other acute finding. Electronically signed by: Jas Rothman MD (12/04/2018 8:41 PM) [id number]
[2018-12-04 20:50] VITALS: BP 130/79
[2018-12-04] MEDS ORDERED: FAMO-63 PO (20:50)
[2018-12-04] MEDS ORDERED: HYDROcodone/APAP 5/325MG 1 TAB TABLET PO ONE (21:15)
== END 2018-12-04 21:20 | disposition home or self-care (01) ==
LOC: ER 17:39
DX: R10.13 Epigastric pain (principal); R30.0 Dysuria; Z98.890 Other specified postprocedural states
CPT/HCPCS: 36415; 74177; 80053; 80307; 81001; 81025; 83690; 85025; 99284; J7030; Q9967

== ENCOUNTER → 2020-01-05 | Outpatient (CLI) | payer OTHER ==
[2019-04-13 15:17] VITALS: BP 140/74
[~2020-01-05] MED LIST changes: +ACET325T9 PO; +DIPH25CA58 PO; +FAMO-63 PO; +FAMO20TA5 PO; +IBUP200T77 PO; +OMEP20CA16 PO; +PRED-220 PO; +TRIA15OI TP
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
== END | disposition home or self-care (01) ==
LOC: PNCL 09:09
PROVIDERS: ATTEND Anesthesiology
DX: M54.5 Low back pain (principal); M79.604 Pain in right leg; M79.605 Pain in left leg; I10 Essential (primary) hypertension; E11.9 Type 2 diabetes mellitus without complications
CPT/HCPCS: G0463

== ENCOUNTER 2021-08-28 09:58 | Emergency (ER) | payer MEDICARE, OTHER ==
[~2021-08-28] VITALS: Ht 165.1 cm; Wt 77.3 kg
[~2021-08-28 09:58] MED LIST changes: -LEVO500T8 PO; +LEVO500T9 PO
[2021-08-28] MEDS ORDERED: IBUPROFEN 400 MG TABLET. PO ONE (10:30)
[2021-08-28] MEDS ORDERED: ACETAMINOPHEN 500 MG TABLET PO ONE (10:30)
[2021-08-28 10:33] LABS: BILIRUBIN,URINE NEGATIVE (NEG); CLARITY,URINE CLEAR; COLOR,URINE YELLOW; NITRITE,URINE NEGATIVE (NEG); PH,URINE 6.5 (<5.0-8.0); PROTEIN,URINE NEGATIVE (NEG-TRACE)
--- NOTE | 2021-08-28 10:38 | PHYS DOC ---
Past Medical History Past Medical History: No Pertinent History Additional Past Medical Histor: hernia Past Surgical History: Other Additional Past Surgical Histo: VENTRAL HERNIA REPAIR, trach placed and removed as Smoking Status: Never Smoker Alcohol Use: None Drug Use: None Adult General Chief Complaint Chief Complaint: PELVIC PAIN HPI HPI The patient is a 31-year-old female who is otherwise healthy. She presents for evaluation of 1 to 2 days of suprapubic abdominal discomfort and dysuria. Associated very mild clear vaginal discharge for the last day or two. Patient reports an episode of unprotected intercourse over the weekend; otherwise she uses protection with her single partner. She denies associated fevers, nausea or vomiting, upper respiratory congestion/rhinorrhea, cough, sore throat, shortness of breath or chest pain of any kind, upper or right-sided abdominal pain of any kind, flank pain, midline back pain, hematuria, polyuria or oliguria, unusual vaginal bleeding, changes in bowel habits. Vital signs are appropriate here the patient is in no acute distress. Review of Systems Review of Systems A 12 point review of systems was completed and was negative except where noted in HPI above. Current Medications Current Medications Current Medications Medications (Trade) Dose Ordered Sig/Chey Start Time Stop Time Status Last Admin Dose Admin Acetaminophen (Tylenol) 1,000 mg 1X ONCE 08/28/21 10:30 08/28/21 10:32 DC 08/28/21 11:16 1,000 MG Ibuprofen (Motrin) 800 mg 1X ONCE 08/28/21 10:30 08/28/21 10:32 DC 08/28/21 11:16 800 MG Allergies Allergies Allergies Coded Allergies Type Severity Reaction Last Updated Verified No Known Drug Allergies 08/28/21 No Physical Exam Physical Exam 31-year-old female appearing nontoxic and in no acute distress. Head is normocephalic and atraumatic. Neck is supple and nontender. Oropharynx is moist. Lungs are clear to auscultation at all stations. There is a normal S1 and S2 without rubs or gallops and capillary refill is appropriate, less than 2 seconds globally. Abdomen is soft, nontender and nondistended aside from very mild focal suprapubic tenderness to palpation without rebound or guarding. Skin is warm and dry without cyanosis, clubbing or edema. Psychiatrically, the patient demonstrates appropriate mood and affect and is alert. Current Patient Data Vital Signs Vital Signs Date Time Temp Pulse Resp B/P (MAP) Pulse Ox O2 Delivery O2 Flow Rate FiO2 08/28/21 10:04 98.6 93 18 149/89 (109) 96 Room Air 98.6 Lab Values Laboratory Tests Test 08/28/21 10:09 08/28/21 10:17 Urine Collection Type Unknown Urine Color Yellow Urine Clarity Clear Urine pH 6.5 (<5.0-8.0) Urine Specific Crawford 1.025 (1.000-1.030) Urine Protein Negative mg/dL (NEG-TRACE) Urine Glucose (UA) Negative mg/dL (NEG) Urine Ketones (Stick) Trace mg/dL (NEG) Urine Blood Negative (NEG) Urine Nitrite Negative (NEG) Urine Bilirubin Negative (NEG) Urine Urobilinogen Dipstick 1.0 mg/dL (0.2 mg/dL) Urine Leukocyte Esterase Small (NEG) Urine RBC 0 /HPF (0-2) Urine WBC 11-20 /HPF (0-4) Urine Squamous Epithelial Cells Few /LPF Urine Bacteria Moderate /HPF (0-FEW) Urine Mucus Slight /LPF POC Urine HCG, Qualitative Hcg negative (Negative) Microbiology 08/28/21 Wet Prep - Final, Complete EKG EKG [] Radiology/Procedures Radiology/Procedures [] Course & Med Decision Making Course & Med Decision Making 31-year-old female here with pelvic/suprapubic discomfort and dysuria for couple of days in the setting of some unprotected intercourse over the weekend. Having a little bit of clear discharge as well. Will give ibuprofen and Tylenol, check urine and urine testing along with self swabs for wet prep and GC/chlamydia and we will then reevaluate. 1213: Pain is controlled. Urinalysis equivocal for infection with white cells and bacteria on microscopy. hCG negative. Gonorrhea/chlamydia sent and pending. In addition to UTI treatment, patient would like empiric treatment for STDs pending her send out test results. Let her know we would be happy to provide that. Will discharge home with 7 days of doxycycline and Flagyl along with cefdinir for UTI. Ibuprofen for discomfort. Patient is to follow-up closely with primary care and to return to the emergency department right away if symptoms worsen or if other new symptoms of concern develop. All questions are answered. Dragon Disclaimer Dragon Disclaimer This electronic medical record was generated, in whole or in part, using a voice recognition dictation system. Departure Departure Impression: Primary Impression: Acute cystitis without hematuria Disposition: HOME / SELF CARE / HOMELESS Condition: GOOD Referrals: BERNARD DE DIOS MD (PCP) Patient Instructions: Sexually Transmitted Disease, [id number], Urinary Tract Infection Additional Instructions: Follow-up very closely with your primary care doctor in the next 2 to 4 days for a reevaluation of your symptoms and to discussion of next best steps in care. Begin taking the doxycycline and Flagyl antibiotics to cover for possible STD as we discussed. Begin taking the cefdinir antibiotic as well to treat your urinary tract infection. Drink plenty of fluids and get plenty of rest. You may take a 600 mg ibuprofen every 6 hours as needed for discomfort. Return to the emergency department right away for worsening symptoms of any kind or with any other new symptoms of concern. Scripts Cefdinir (CEFDINIR) 300 Mg Capsule 1 CAP PO BID for 5 Days, #10 CAP Prov: OLIMPIA CHU MD 08/28/21 Metronidazole (METRONIDAZOLE) 500 Mg Tablet 1 TAB PO BID for 7 Days, #14 TAB 0 Refills Prov: OLIMPIA CHU MD 08/28/21 Doxycycline Hyclate (DOXYCYCLINE HYCLATE) 100 Mg Capsule 1 CAP PO BID for 7 Days, #14 CAP Prov: OLIMPIA CHU MD 08/28/21 OLIMPIA CHU MD Aug 28, 2021 10:38
[2021-08-28 10:57] LABS: BACTERIA,URINE MODERATE /HPF (0-FEW)
[2021-08-28 10:58] LABS: RBC,URINE 0 /HPF (0-2)
[2021-08-28] MEDS ORDERED: cefTRIAXone IM 1 GM VIAL IM ONE (12:15)
[2021-08-28] MEDS ORDERED: DOXY100C3 PO (12:18)
[2021-08-28] MEDS ORDERED: METR-34 PO (12:18)
[2021-08-28] MEDS ORDERED: CEFD300C PO (12:18)
[2021-08-28 12:31] VITALS: BP 124/68
[2021-08-30 00:08] LABS: GC PROBE Negative (Negative)
== END 2021-08-28 12:31 | disposition home or self-care (01) ==
LOC: ER 09:58
DX: N30.00 Acute cystitis without hematuria (principal)
CPT/HCPCS: 81001; 81025; 87086; 87491; 87591; 96372; 99283; J0696; Q0111

== ENCOUNTER 2021-11-03 16:18 | Emergency (ER) | payer MEDICARE, OTHER ==
[~2021-11-03] VITALS: Ht 162.6 cm; Wt 90.1 kg
[~2021-11-03 16:18] MED LIST changes: +CEFD300C PO; +DOXY100C3 PO; +METR-34 PO
[2021-11-03] MEDS ORDERED: PSEUDOEPHEDRINE 30 MG TABLET. PO STA (16:48)
--- NOTE | 2021-11-03 16:59 | PHYS DOC ---
Past Medical History Past Medical History: No Pertinent History Additional Past Medical Histor: hernia Past Surgical History: Other Additional Past Surgical Histo: VENTRAL HERNIA REPAIR, trach placed and removed as Smoking Status: Never Smoker Alcohol Use: None Drug Use: None General Adult EDM: Chief Complaint: HEADACHE HPI: HPI: Patient is a 31 year old female presenting to the ED today complaining of headache, nasal congestion, symptoms began 3 days ago. Patient denies any fever, chest pain, shortness of breath. She is in the ED with 2 other family members with similar complaints. She states she thinks she has seasonal allergies, she states she is also vaccinated against COVID19 Review of Systems: Review of Systems: Constitutional: Denies fever or chills. [] Eyes: Denies change in visual acuity. [] HENT: Reports nasal congestion, denies sore throat. [] Respiratory: Denies cough or shortness of breath. [] Cardiovascular: Denies chest pain or edema. [] GI: Denies abdominal pain, nausea, vomiting, bloody stools or diarrhea. [] : Denies dysuria. [] Musculoskeletal: Denies back pain or joint pain. [] Integument: Denies rash. [] Neurologic: Reports headache, denies focal weakness or sensory changes. [] Psychiatric: Denies depression or anxiety. [] Heart Score: C/O Chest Pain: N/A Risk Factors: Risk Factors: DM, Current or recent (<one month) smoker, HTN, HLP, family history of CAD, obesity. Risk Scores: Score 0 - 3: 2.5% MACE over next 6 weeks - Discharge Home Score 4 - 6: 20.3% MACE over next 6 weeks - Admit for Clinical Observation Score 7 - 10: 72.7% MACE over next 6 weeks - Early Invasive Strategies Current Medications: Current Medications Medications (Trade) Dose Ordered Sig/Chey Start Time Stop Time Status Last Admin Dose Admin Guaifenesin (Mucinex) 600 mg 1X ONCE 11/03/21 17:00 11/03/21 17:01 Ibuprofen (Motrin) 800 mg 1X ONCE 11/03/21 17:00 11/03/21 17:01 Pseudoephedrine HCl (Sudafed) 30 mg 1X STAT 11/03/21 16:48 11/03/21 16:53 DC Allergies: Allergies: Allergies Coded Allergies Type Severity Reaction Last Updated Verified No Known Drug Allergies 08/28/21 No Physical Exam: PE: Constitutional: Well developed, well nourished, no acute distress, non-toxic appearance. [] HENT: Normocephalic, atraumatic, bilateral external ears normal, oropharynx moist, no oral exudates, patient sounds congested nasally Eyes: PERRLA, EOMI, conjunctiva normal, no discharge. [] Neck: Normal range of motion, no tenderness, supple, no stridor. [] Cardiovascular:Heart rate regular rhythm, no murmur [] Lungs & Thorax: Bilateral breath sounds clear to auscultation [] Abdomen: Bowel sounds normal, soft, no tenderness, no masses, no pulsatile masses. [] Skin: Warm, dry, no erythema, no rash. [] Back: No tenderness, no CVA tenderness. [] Extremities: No tenderness, no cyanosis, no clubbing, ROM intact, no edema. [] Neurologic: Alert and oriented X 3, normal motor function, normal sensory fun ction, no focal deficits noted. Cranial nerves II through XII intact Psychologic: Affect normal, judgement normal, mood normal. [] EKG: EKG: [] Radiology/Procedures: Radiology/Procedures: [] Course & Med Decision Making: Course & Med Decision Making Pertinent Labs and Imaging studies reviewed. (See chart for details) This is a 31-year-old female patient presented to the ED today with headache and nasal congestion for 3 days Negative rapid Covid test, negative influenza a and B test. PCR Covid test pending. Supportive care measures recommended. Discharged home Dragpatricia Disclaimer: Addi Disclaimer: This electronic medical record was generated, in whole or in part, using a voice recognition dictation system. Departure Departure Impression: Primary Impression: URI (upper respiratory infection) Qualified Codes: J06.9 - Acute upper respiratory infection, unspecified Additional Impression: Headache Qualified Codes: R51.9 - Headache, unspecified Disposition: 01 HOME / SELF CARE / HOMELESS Condition: STABLE Referrals: NO PCP (PCP) follow up in one week with your doctor Patient Instructions: General Headache Without Cause, Upper Respiratory Infection, Adult, [id number] Additional Instructions: You were evaluated in the emergency room, your rapid Covid test as well as rapid influenza test are negative. You have a pending PCR COVID test, we will call you when results are available. Push fluids, take Tylenol or Motrin for pain or fever. AMBROSIO HARRINGTON APRN Nov 03, 2021 16:59
[2021-11-03] MEDS ORDERED: IBUPROFEN 400 MG TABLET. PO ONE (17:00)
[2021-11-03 17:59] VITALS: BP 131/84
[2021-11-03 18:25] LABS: INFLUENZA A PATIENT NEGATIVE (NEGATIVE); INFLUENZA B PATIENT NEGATIVE (NEGATIVE)
[2021-11-03] MEDS ORDERED: LORA-627 PO (18:54)
--- NOTE | 2021-11-04 16:28 | NUR ---
IP: Informed pt of negative covid test. Pt verbalized understanding.
== END 2021-11-03 19:12 | disposition home or self-care (01) ==
LOC: ER 16:18
DX: J06.9 Acute upper respiratory infection, unspecified (principal); R51.9 Headache, unspecified; Z20.822 Contact with and (suspected) exposure to COVID-19
CPT/HCPCS: 87428; 99284; C9803; U0003